=== PATIENT | female | born 1985 | race Caucasian/White ===

== ENCOUNTER 2018-01-17 14:11 | Inpatient (IN) | payer SELFPAY ==
--- NOTE | 2018-01-17 14:30 | ER Document Report ---
ED Seizure - General Chief Complaint: ETOH Abuse Stated Complaint: WITHDRAWL Time Seen by Provider: 01/17/18 14:29 Mode of Arrival: Medic Information source: Patient, Relative, Emergency Med Personnel - HPI Patient complains to provider of: First seizure Number of episodes: 2 Time of onset: 1330 Duration: 1 MIN Quality of pain: No pain Continued on arrival to ED: No Can details of seizure be obtained/verified: Yes Episode witnessed (by whom): Yes - SIGN. OTHER Preceding symptoms/context: Recent alcohol intake, Other - LONG-TERM ALCOHOLISM History of: denies: Brain tumor or mets, CVA, Hydrocephalus, Migraines, TBI, V/ P shunt, Other Character of seizure: Complete loss/conscious, Generalized shaking. No: Incontinent stool, Incontinent bladder Post-ictal symptoms: None Injuries: None - Related Data Allergies/Adverse Reactions: No Known Allergies Allergy (Verified 07/04/15 11:54) Past Medical History - General Information source: Patient - Social History Smoking Status: Former Smoker Cigarette use (# per day): No Chew tobacco use (# tins/day): No Frequency of alcohol use: Heavy Drug Abuse: None Lives with: Spouse/Significant other Family History: Reviewed & Not Pertinent Patient has suicidal ideation: No Patient has homicidal ideation: No - Past Medical History Cardiac Medical History: Reports: None Pulmonary Medical History: Reports: None EENT Medical History: Reports: None Neurological Medical History: Reports: None Endocrine Medical History: Reports: None Renal/ Medical History: Reports: None. Denies: Hx Peritoneal Dialysis Malignancy Medical History: Reports: None GI Medical History: Reports: None. Denies: Hx Cirrhosis, Hx Hepatitis, Hx Ulcer Musculoskeltal Medical History: Reports None Skin Medical History: Reports None Psychiatric Medical History: Reports: None Past Surgical History: Reports: Hx Appendectomy - Immunizations Hx Diphtheria, Pertussis, Tetanus Vaccination: Yes Review of Systems - Review of Systems Constitutional: Weakness EENT: No symptoms reported Cardiovascular: No symptoms reported Respiratory: No symptoms reported Gastrointestinal: No symptoms reported Genitourinary: No symptoms reported Female Genitourinary: No symptoms reported Musculoskeletal: No symptoms reported Skin: No symptoms reported Neurological/Psychological: See HPI Physical Exam - Vital signs Vitals: Temp Pulse Resp BP Pulse Ox 98.5 F 119 H 20 136/102 H 96 01/17/18 14:24 01/17/18 14:24 01/17/18 14:24 01/17/18 14:24 01/17/18 14:24 Interpretation: Hypertensive, Tachycardic. No: Hypoxic, Tachypneic, Febrile - General General appearance: Appears well, Alert In distress: None - HEENT Head: Normocephalic Eyes: Normal Conjunctiva: Normal Ears: Normal Nasal: Normal Mouth/Lips: Normal Mucous membranes: Normal - Respiratory Respiratory status: No respiratory distress Breath sounds: Normal - Cardiovascular Rhythm: Regular Heart sounds: Normal auscultation Murmur: No - Abdominal Inspection: Normal Distension: No distension Bowel sounds: Hypoactive Tenderness: Nontender - Extremities General upper extremity: Normal inspection General lower extremity: Normal inspection - Neurological Neuro grossly intact: Yes Cognition: Normal Orientation: AAOx4 - Psychological Associated symptoms: Normal affect, Normal mood - Skin Skin Temperature: Warm Skin Moisture: Dry Skin Color: Normal Skin Turgor: Elastic Skin irregularity: other - CONTUSIONS, MULTIPLE, VARIOUS AGES Location of irregularity: Generalized - MORE ON EXTREMITIES, SOME ALSO ON HEAD & NECK Course - Vital Signs Vital signs: Temp Pulse Resp BP Pulse Ox 98.5 F 119 H 24 H 132/93 H 98 01/17/18 14:24 01/17/18 14:24 01/17/18 19:02 01/17/18 19:02 01/17/18 19:02 - Laboratory Result Diagrams: 01/17/18 13:45 01/17/18 13:45 Laboratory results interpreted by me: 01/17/18 01/17/18 13:45 13:45 WBC 11.9 H RDW 17.0 H Seg Neuts % (Manual) 96 H Lymphocytes % (Manual) 1 L Abs Neuts (Manual) 11.4 H Abs Lymphs (Manual) 0.1 L Sodium 147.3 H Potassium 3.5 L Anion Gap 25 H Calcium 10.3 H AST 109 H Creatine Kinase 5307 H Albumin 5.1 H Salicylates < 1.0 L Acetaminophen < 10 L - EKG Interpretation by Ma EKG shows normal: Sinus rhythm, Newell, QRS Complexes, ST-T Waves. abnormal: Intervals - BORDERLINE LONG QT Rate: Tachycardia - Consults DR. SANDHU Time consulted: 19:32 Consulted provider: will come to ER Discharge - Discharge Clinical Impression: Alcohol withdrawal delirium, Multiple contusions, Alcohol abuse, daily use, Elevated creatine kinase Condition: Good Disposition: ADMITTED OBSERVATION Admitting Provider: Hospitalist Unit Admitted: Telemetry
[2018-01-17] MEDS ORDERED: LORAZEPAM INJ 2 MG/1 ML VIAL IV ONE ×2 (14:37→20:12)
[2018-01-17] MEDS ORDERED: NORMAL SALINE 1000 ML 2,000 ML IV PRN (14:37)
[2018-01-17] MEDS ORDERED: DIAZEPAM 5 MG TABLET PO ONE (14:40)
[2018-01-17 15:09] LABS: HEMATOCRIT 42.9 % (36.0-47.0); HEMOGLOBIN 14.2 g/dL (12.0-15.5); MEAN CORPUSCULAR HEMOGLOBIN 28.8 pg (27.0-33.4); MEAN CORPUSCULAR HGB CONC 33.2 g/dL (32.0-36.0); MEAN CORPUSCULAR VOLUME 87 fl (80-97); PLATELET COUNT 206 10^3/uL (150-450); RED BLOOD COUNT 4.95 10^6/uL (3.72-5.28); WHITE BLOOD COUNT 11.9 10^3/uL (4.0-10.5)
[2018-01-17 15:23] LABS: ALANINE AMINOTRANSFERASE 48 U/L (9-52); ALBUMIN 5.1 g/dL (3.5-5.0); ALCOHOL 73 mg/dL (NONE DETECTED); ALKALINE PHOSPHATASE 62 U/L (38-126); ASPARTATE AMINO TRANSFERASE 109 U/L (14-36); BILIRUBIN,DIRECT 0.4 mg/dL (0.0-0.4); BILIRUBIN,TOTAL 0.4 mg/dL (0.2-1.3); BLOOD UREA NITROGEN 8 mg/dL (7-20); CALCIUM 10.3 mg/dL (8.4-10.2); CARBON DIOXIDE 22 mmol/L (22-30); CHLORIDE 100 mmol/L (98-107); GLUCOSE 99 mg/dL (75-110); LIPASE 23.8 U/L (23-300); POTASSIUM 3.5 mmol/L (3.6-5.0); TOTAL PROTEIN 8.2 g/dL (6.3-8.2)
[2018-01-17 15:24] LABS: ACETAMINOPHEN < 10 ug/mL (10-30); SALICYLATE < 1.0 mg/dL (2.0-20.0)
[2018-01-17 15:28] LABS: INTERNATIONAL RATION (INR) 0.94; SODIUM 147.3 mmol/L (137-145)
[2018-01-17 15:32] LABS: ANION GAP 25 (5-19)
[2018-01-17 15:36] LABS: ABSOLUTE LYMPHOCYTES# (MANUAL) 0.1 10^3/uL (0.5-4.7); ABSOLUTE MONOCYTES # (MANUAL) 0.4 10^3/uL (0.1-1.4); ABSOLUTE NEUTROPHILS# (MANUAL) 11.4 10^3/uL (1.7-8.2); BASOPHILS % (MANUAL) 0 % (0-2); EOSINOPHILS % (MANUAL) 0 % (0-6); LYMPHOCYTES % (MANUAL) 1 % (13-45); MONOCYTES % (MANUAL) 3 % (3-13); SEGMENTED NEUTROPHILS % (MAN) 96 % (42-78); TOTAL CELLS COUNTED 100
[2018-01-17 15:37] LABS: ANISOCYTOSIS 1+; PLATELET COMMENT ADEQUATE
[2018-01-17 15:44] LABS: CREATINE KINASE 5307 U/L (30-135)
--- NOTE | 2018-01-17 16:45 | EKG REPORT ---
SEVERITY:- BORDERLINE ECG - SINUS TACHYCARDIA BORDERLINE PROLONGED QT INTERVAL : Confirmed by: Chi Geller MD 17-Jan-2018 16:44:28
[2018-01-17] MEDS ORDERED: RINGERS SOLUTION,LACTATED 2,000 ML IV PRN (17:15)
[2018-01-17] MEDS ORDERED: LORAZEPAM INJ 2 MG/1 ML VIAL IV PRN (18:03)
[2018-01-17] MEDS ORDERED: MAG HYDROX/AL HYDROX/SIMETH SUSP 30 ML UDCUP PO PRN (19:33)
[2018-01-17] MEDS ORDERED: MAGNESIUM HYDROXIDE SUSP 30 ML UDCUP PO PRN (19:33)
[2018-01-17] MEDS ORDERED: IPRATROPIUM/ALBUTEROL 0.5-2.5 MG/3 ML AMPUL NEB PRN (19:33)
[2018-01-17] MEDS ORDERED: LORAZEPAM INJ 2 MG/1 ML VIAL IV SCH (20:00)
[2018-01-17] MEDS: LORAZEPAM INJ 2 MG/1 ML VIAL IV PRN (20:06)
[2018-01-17 20:14] LABS: PHOSPHORUS 4.7 mg/dL (2.5-4.5)
[2018-01-17] MEDS ORDERED: OLANZAPINE INJ/PF 10 MG SDV IM ONE (20:17)
[2018-01-17 20:18] LABS: AMORPHOUS SEDIMENT,URINE TRACE /HPF; APPEARANCE,URINE CLOUDY; BILIRUBIN,URINE NEGATIVE (NEGATIVE); COLOR,URINE YELLOW; GLUCOSE, URINE NEGATIVE (NEGATIVE); KETONES,URINE NEGATIVE (NEGATIVE); LEUKOCYTE ESTERASE,URINE LARGE (NEGATIVE); NITRITE,URINE NEGATIVE (NEGATIVE); PROTEIN,URINE 30 mg/dL (NEGATIVE); URINE SPECIFIC GRAVITY 1.009; UROBILINOGEN,URINE NEGATIVE mg/dL (<2.0)
[2018-01-17] MEDS ORDERED: THIAMINE HCL INJ 200 MG/2 ML VIAL ONE (20:23)
[2018-01-17 20:24] LABS: URINE AMPHETAMINES SCREEN NEGATIVE; URINE BARBITURATES SCREEN NEGATIVE; URINE BENZODIAZEPINES SCREEN NEGATIVE; URINE COCAINE SCREEN NEGATIVE; URINE MARIJUANA (THC) SCREEN NEGATIVE; URINE METHADONE SCREEN NEGATIVE; URINE PHENCYCLIDINE SCREEN NEGATIVE
[2018-01-17] MEDS ORDERED: THIAMINE HCL 100 MG, FOLIC ACID 1 MG in NORMAL SALINE 250 ML IV ONE (20:30)
[2018-01-17] MEDS: POTASSI CL 20 MEQ/D5-1/2NS 1L 1,000 ML IV SCH (20:33)
[2018-01-17] MEDS: IPRATROPIUM/ALBUTEROL 0.5-2.5 MG/3 ML AMPUL NEB SCH (20:56)
[2018-01-17] MEDS: MAGNESIUM SULFATE/D5W 2 GM/200 ML RTUPB IV SCH (21:30)
[2018-01-17] MEDS ORDERED: MORPHINE SULFATE 10 MG/ML INJ ONE (21:58)
[2018-01-17] MEDS ORDERED: MORPHINE SULFATE 10 MG/ML INJ IV ONE (22:01)
[2018-01-18] MEDS: HEPARIN SOD (PORCINE) 5,000 UNIT/ML 1 ML SYRINGE SUBCUT SCH ×4 (02:07→21:28)
[2018-01-18] MEDS: LORAZEPAM INJ 2 MG/1 ML VIAL IV SCH ×5 (02:07→17:16)
[2018-01-18] MEDS: POTASSI CL 20 MEQ/D5-1/2NS 1L 1,000 ML IV SCH (02:10)
[2018-01-18] MEDS: LORAZEPAM INJ 2 MG/1 ML VIAL IV PRN ×5 (04:07→14:40)
[2018-01-18 04:21] LABS: ABSOLUTE LYMPHOCYTES (AUTO) 1.1 10^3/uL (0.5-4.7); ABSOLUTE MONOCYTES (AUTO) 0.6 10^3/uL (0.1-1.4); ABSOLUTE NEUT (AUTO) 5.5 10^3/uL (1.7-8.2); BASOPHILS % (AUTO) 0.3 % (0-2); EOSINOPHILS % (AUTO) 0.5 % (0-6); HEMATOCRIT 31.6 % (36.0-47.0); LYMPHOCYTES % (AUTO) 15.3 % (13-45); MEAN CORPUSCULAR HGB CONC 33.7 g/dL (32.0-36.0); MEAN CORPUSCULAR VOLUME 86 fl (80-97); MONOCYTES % (AUTO) 8.3 % (3-13); PLATELET COUNT 134 10^3/uL (150-450); RED BLOOD COUNT 3.67 10^6/uL (3.72-5.28); RED CELL DISTRIBUTION WIDTH 16.7 % (11.5-14.0); SEGMENTED NEUTROPHILS % (AUTO) 75.6 % (42-78); TOTAL CELLS COUNTED % (AUTO) 100 %; WHITE BLOOD COUNT 7.3 10^3/uL (4.0-10.5)
[2018-01-18 04:25] LABS: HEMOGLOBIN 10.6 g/dL (12.0-15.5)
[2018-01-18 04:44] LABS: ALANINE AMINOTRANSFERASE 40 U/L (9-52); ALBUMIN 3.5 g/dL (3.5-5.0); ALKALINE PHOSPHATASE 38 U/L (38-126); ANION GAP 7 (5-19); ASPARTATE AMINO TRANSFERASE 137 U/L (14-36); BILIRUBIN,DIRECT 0.1 mg/dL (0.0-0.4); BILIRUBIN,TOTAL 0.6 mg/dL (0.2-1.3); BLOOD UREA NITROGEN 4 mg/dL (7-20); CALCIUM 8.4 mg/dL (8.4-10.2); CARBON DIOXIDE 28 mmol/L (22-30); CHLORIDE 106 mmol/L (98-107); GLUCOSE 119 mg/dL (75-110); POTASSIUM 3.4 mmol/L (3.6-5.0); SODIUM 141.2 mmol/L (137-145)
[2018-01-18] MEDS: LANSOPRAZOLE 30 MG TAB.RAP.DR PO SCH ×2 (05:15→17:15)
[2018-01-18 05:31] LABS: CREATINE KINASE 7741 U/L (30-135)
--- NOTE | 2018-01-18 05:39 | PDOC H&P ---
History of Present Illness Admission Date/PCP: 01/17/18 19:44 Patient complains of: Seizure-like activity History of Present Illness: ELADIO HAM is a 32 year old female with an unclear past medical history with exception to alcohol dependence. Patient presents with altered mental status and at least one seizure prompting evaluation in the emergency room. The patient is intoxicated appearing, agitated, manic with tremor, flight of ideas, widespread bruising of various ages and dilated pupils. Patient denies physical abuse but admits alcohol dependence and recurrent falls. Patient attempts to elope several times, involuntary commitment papers have been submitted and she is referred to the hospitalist for admission. She requires 6 mg of Ativan, 10 mg of Zyprexa and 10 mg of morphine resulting in calm affect. Past Medical History Cardiac Medical History: Reports: None Pulmonary Medical History: Reports: None EENT Medical History: Reports: None Neurological Medical History: Reports: None Endocrine Medical History: Reports: None Renal/ Medical History: Reports: None Malignancy Medical History: Reports: None GI Medical History: Reports: None Denies: Cirrhosis, Hepatitis Musculoskeltal Medical History: Reports: None Skin Medical History: Reports: None Psychiatric Medical History: Reports: Alcohol Dependency, Depression Past Surgical History Past Surgical History: Reports: Appendectomy Social History Information Source: Patient, Emergency Med Personnel Lives with: Spouse/Significant other Smoking Status: Current Every Day Smoker Frequency of Alcohol Use: Heavy Hx Recreational Drug Use: No Drugs: None Hx Prescription Drug Abuse: No - Advance Directive Resuscitation Status: Full Code Family History Family History: Hypertension Parental Family History Reviewed: Yes Children Family History Reviewed: Yes Sibling(s) Family History Reviewed.: Yes Medication/Allergy Home Medications: Ferrous Sulfate [Iron Supplement] 325 mg PO DAILY 07/01/15 Vits96/Iron Fum/Folic [ Tablet] 1 tab PO DAILY 07/01/15 Ibuprofen [Motrin 800 mg Tablet] 800 mg PO Q8 #60 tablet 07/07/15 Allergies/Adverse Reactions: No Known Allergies Allergy (Verified 07/04/15 11:54) Review of Systems ROS unobtainable: Due to mental status Physical Exam Vital Signs: Temp Pulse Resp BP Pulse Ox 98.2 F 107 H 14 112/84 98 01/18/18 03:22 01/17/18 22:52 01/18/18 02:00 01/18/18 01:51 01/18/18 02:00 Intake & Output 01/16/18 01/17/18 01/18/18 11:59 11:59 11:59 Output Total 1575 Balance -1575 Weight 67.8 kg General appearance: PRESENT: disheveled, severe distress. ABSENT: cooperative, hard of hearing Head exam: PRESENT: other - Left-sided periorbital edema with ecchymosis, many scattered bruises throughout Eye exam: PRESENT: conjunctiva pink, EOMI, PERRLA - 6-7 mm and symmetric. ABSENT: scleral icterus Ear exam: PRESENT: normal external ear exam Mouth exam: PRESENT: moist, tongue midline Neck exam: ABSENT: carotid bruit, JVD, lymphadenopathy, thyromegaly Respiratory exam: PRESENT: clear to auscultation jan, tachypnea. ABSENT: rales , rhonchi, wheezes Cardiovascular exam: PRESENT: RRR, tachycardia. ABSENT: systolic murmur Pulses: PRESENT: normal dorsalis pedis pul Vascular exam: PRESENT: normal capillary refill GI/Abdominal exam: PRESENT: normal bowel sounds, soft. ABSENT: distended, guarding, mass, organolmegaly, rebound, tenderness Rectal exam: PRESENT: deferred Extremities exam: PRESENT: full ROM, other - Widespread bruising of various stages of healing. ABSENT: calf tenderness, clubbing, pedal edema Neurological exam: PRESENT: alert, altered, awake, oriented to person, oriented to place, CN II-XII grossly intact. ABSENT: oriented to time, oriented to situation Psychiatric exam: PRESENT: agitated, manic, unusual affect Skin exam: PRESENT: abrasion, erythema. ABSENT: cyanosis, dry, petechiae, urticaria, vesicles Results Laboratory Results: 01/18/18 03:50 01/17/18 01/18/18 19:46 03:50 WBC 7.3 RBC 3.67 L Hgb 10.6 L D Hct 31.6 L MCV 86 MCH 29.0 MCHC 33.7 RDW 16.7 H Plt Count 134 L Seg Neutrophils % 75.6 Lymphocytes % 15.3 Monocytes % 8.3 Eosinophils % 0.5 Basophils % 0.3 Absolute Neutrophils 5.5 Absolute Lymphocytes 1.1 Absolute Monocytes 0.6 Absolute Eosinophils 0.0 Absolute Basophils 0.0 Urine Color YELLOW Urine Appearance CLOUDY Urine pH 5.0 Ur Specific [place] 1.009 Urine Protein 30 H Urine Glucose (UA) NEGATIVE Urine Ketones NEGATIVE Urine Blood MODERATE H Urine Nitrite NEGATIVE Ur Leukocyte Esterase LARGE H Urine WBC (Auto) 33 Urine RBC (Auto) 2 Assessment & Plan - Diagnosis (1) Intoxication by drug Is this a current diagnosis for this admission?: Yes Plan: Unclear agent with heath, supportive measures, psychiatry consult, involuntary commitment (2) Alcohol abuse, daily use Is this a current diagnosis for this admission?: Yes Plan: Thiamine folate and Ativan and discharge planning (3) Alcohol withdrawal delirium Is this a current diagnosis for this admission?: Yes Plan: See #2 with seizure precaution (4) Elevated creatine kinase Is this a current diagnosis for this admission?: Yes Plan: Secondary to multiple presumed falls denying abuse reevaluate when mental status improves, IV fluid challenge reevaluate chemistry - Time Time Spent: 50 to 70 Minutes - Inpatient Certification Medical Necessity: Need Close Monitoring Due to Risk of Patient Decompensation
[2018-01-18] MEDS: NORMAL SALINE 1000 ML 1,000 ML IV PRN ×3 (06:08→08:29)
[2018-01-18] MEDS: IPRATROPIUM/ALBUTEROL 0.5-2.5 MG/3 ML AMPUL NEB SCH ×2 (09:10→20:49)
[2018-01-18] MEDS ORDERED: SUCCINYLCHOLINE CHLORIDE INJ 200 MG/10 ML VIAL ONE (09:55)
[2018-01-18] MEDS ORDERED: NITROFURANTOIN 5 MG/ML SUSP 60 ML PO SCH (10:45)
[2018-01-18] MEDS: THIAMINE HCL 100 MG, FOLIC ACID 1 MG in NORMAL SALINE 250 ML IV SCH (10:53)
[2018-01-18] MEDS: DOCUSATE SODIUM 100 MG CAPSULE PO SCH ×2 (10:53→17:15)
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
[2018-01-18] MEDS ORDERED: POTASSIUM CHLORIDE 20 MEQ/15 ML UDCUP PO ONE (11:15)
[2018-01-18] MEDS ORDERED: NITROFURANTOIN MONOHYD/M-CRYST 100 MG CAPSULE PO ONE (11:45)
[2018-01-18] MEDS: POTASSI CL 20 MEQ/D5-1/2NS 1L 1,000 ML IV PRN (13:31)
[2018-01-18] MEDS ORDERED: PHARMACY COMMUNICATION ORDER MC NR (14:30)
[2018-01-18] MEDS ORDERED: MIDAZOLAM 2 MG/2 ML INJ ONE (14:46)
[2018-01-18] MEDS: PROPOFOL 100 ML IV PRN ×4 (15:10→22:40)
[2018-01-18] MEDS: LORAZEPAM 24 MG/240 ML BAG IV PRN ×2 (15:21→20:42)
--- NOTE | 2018-01-18 15:41 | RADIOLOGY REPORT (SQ) ---
EXAM DESCRIPTION: CHEST SINGLE VIEW COMPLETED DATE/TIME: 01/18/2018 3:17 pm REASON FOR STUDY: ET TUBE PLACEMENT COMPARISON: 03/11/2015 two-view chest EXAM PARAMETERS: NUMBER OF VIEWS: One view. TECHNIQUE: Single frontal radiographic view of the chest acquired. RADIATION DOSE: NA LIMITATIONS: None. FINDINGS: LUNGS AND PLEURA: Right lung grossly clear. Minimal airspace disease left lower lobe, cou ld represent early or developing pneumonia. Aspiration should be considered. No pleural effusion. No pneumothorax. MEDIASTINUM AND HILAR STRUCTURES: No masses. Contour normal. HEART AND VASCULAR STRUCTURES: Heart normal in size. Normal vasculature. BONES: No acute findings. HARDWARE: Endotracheal tube tip midtrachea. Nasogastric tube tip and side port in the stomach OTHER: Report called at [facility] in the ICU IMPRESSION: Endotracheal and nasogastric tubes in good positioning. Early or developing left lower lobe air space disease, aspiration pneumonia should be considered TECHNICAL DOCUMENTATION: JOB ID: [id number] [employer]- All Rights Reserved Reading location - IP/workstation name: [email or web address]
--- NOTE | 2018-01-18 15:43 | RADIOLOGY REPORT (SQ) ---
EXAM DESCRIPTION: KUB/ABDOMEN (SINGLE VIEW) COMPLETED DATE/TIME: 01/18/2018 3:17 pm REASON FOR STUDY: NGT PLACEMENT COMPARISON: AP chest same date NUMBER OF VIEWS: One view. TECHNIQUE: Supine radiographic image of the abdomen acquired. LIMITATIONS: None. FINDINGS: BOWEL GAS PATTERN: Nasogastric tube tip and side port in the stomach. Nonobstructive kamla l gas pattern. CALCIFICATIONS: No suspicious calcifications. SOFT TISSUES: No gross mass or suggestion of organomegaly. HARDWARE: Nichole catheter in the bladder. Nasogastric tube tip and side port in the stomach. BONES: No acute fracture. No worrisome bone lesions. OTHER: No other significant finding. IMPRESSION: Nonobstructive bowel gas pattern. Nasogastric tube and Nichole catheter in good positioni ng TECHNICAL DOCUMENTATION: JOB ID: [id number] [employer]- All Rights Reserved Reading location - IP/workstation name: [email or web address]
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
[2018-01-18] MEDS: NITROFURANTOIN MONOHYD/M-CRYST 100 MG CAPSULE PO SCH (17:14)
[2018-01-18 17:45] LABS: ARTERIAL BLOOD BASE EXCESS -1.4 mmol/L; ARTERIAL BLOOD H2CO3 0.86 mmol/L (1.05-1.35); ARTERIAL BLOOD HCO3 21.1 mmol/L (20-26); ARTERIAL BLOOD O2 SATURATION 99.2 % (94-98); ARTERIAL BLOOD PCO2 28.5 mmHg (35-45); ARTERIAL BLOOD PH 7.49 (7.35-7.45); ARTERIAL BLOOD PO2 153.8 mmHg (80-100)
[2018-01-18 17:46] LABS: ARTERIAL BLOOD FIO2 40%
[2018-01-18 20:18] LABS: ARTERIAL BLOOD BASE EXCESS -1.5 mmol/L; ARTERIAL BLOOD H2CO3 1.07 mmol/L (1.05-1.35); ARTERIAL BLOOD HCO3 22.5 mmol/L (20-26); ARTERIAL BLOOD O2 SATURATION 98.3 % (94-98); ARTERIAL BLOOD PCO2 35.5 mmHg (35-45); ARTERIAL BLOOD PH 7.42 (7.35-7.45); ARTERIAL BLOOD PO2 113.6 mmHg (80-100); ARTERIAL BLOOD TOTAL CO2 23.6 mmol/L (21-25)
[2018-01-18 20:19] LABS: ARTERIAL BLOOD FIO2 30%
[2018-01-18] MEDS: ACETAMINOPHEN 325 MG TABLET PO PRN (21:28)
[2018-01-19] MEDS: LORAZEPAM INJ 2 MG/1 ML VIAL IV SCH ×4 (00:06→17:06)
[2018-01-19] MEDS: POTASSI CL 20 MEQ/D5-1/2NS 1L 1,000 ML IV PRN ×2 (00:08→10:16)
[2018-01-19] MEDS: LORAZEPAM 24 MG/240 ML BAG IV PRN ×5 (01:55→22:33)
[2018-01-19] MEDS: LORAZEPAM INJ 2 MG/1 ML VIAL IV PRN ×2 (01:55→20:55)
[2018-01-19] MEDS: PROPOFOL 100 ML IV PRN ×6 (01:55→20:39)
[2018-01-19 04:07] LABS: HEMATOCRIT 34.1 % (36.0-47.0); HEMOGLOBIN 11.5 g/dL (12.0-15.5); MEAN CORPUSCULAR HEMOGLOBIN 29.4 pg (27.0-33.4); MEAN CORPUSCULAR HGB CONC 33.8 g/dL (32.0-36.0); MEAN CORPUSCULAR VOLUME 87 fl (80-97); PLATELET COUNT 117 10^3/uL (150-450); RED BLOOD COUNT 3.92 10^6/uL (3.72-5.28); RED CELL DISTRIBUTION WIDTH 16.5 % (11.5-14.0)
[2018-01-19 04:11] LABS: INTERNATIONAL RATION (INR) 0.96; PROTHROMBIN TIME 13.3 SEC (11.4-15.4)
[2018-01-19 04:39] LABS: ALANINE AMINOTRANSFERASE 45 U/L (9-52); ALBUMIN 3.3 g/dL (3.5-5.0); ALKALINE PHOSPHATASE 49 U/L (38-126); ANION GAP 11 (5-19); ASPARTATE AMINO TRANSFERASE 107 U/L (14-36); BILIRUBIN,DIRECT 0.4 mg/dL (0.0-0.4); BILIRUBIN,TOTAL 0.5 mg/dL (0.2-1.3); BLOOD UREA NITROGEN 2 mg/dL (7-20); CALCIUM 8.7 mg/dL (8.4-10.2); CARBON DIOXIDE 23 mmol/L (22-30); CHLORIDE 111 mmol/L (98-107); GLUCOSE 110 mg/dL (75-110); IRON 28.4 ug/dL (37-170); PHOSPHORUS 2.6 mg/dL (2.5-4.5); POTASSIUM 3.5 mmol/L (3.6-5.0); SODIUM 145.2 mmol/L (137-145); TOTAL PROTEIN 6.1 g/dL (6.3-8.2); TRIGLYCERIDES 120 mg/dL (<150)
[2018-01-19 05:05] LABS: CREATINE KINASE 4632 U/L (30-135)
[2018-01-19] MEDS: ACETAMINOPHEN 325 MG TABLET PO PRN ×2 (05:13→10:55)
[2018-01-19] MEDS: HEPARIN SOD (PORCINE) 5,000 UNIT/ML 1 ML SYRINGE SUBCUT SCH (05:13)
[2018-01-19] MEDS: LANSOPRAZOLE 30 MG TAB.RAP.DR PO SCH (05:13)
[2018-01-19 05:54] LABS: ARTERIAL BLOOD BASE EXCESS -1.7 mmol/L; ARTERIAL BLOOD H2CO3 1.03 mmol/L (1.05-1.35); ARTERIAL BLOOD HCO3 22.1 mmol/L (20-26); ARTERIAL BLOOD O2 SATURATION 92.9 % (94-98); ARTERIAL BLOOD PCO2 34.2 mmHg (35-45); ARTERIAL BLOOD PH 7.43 (7.35-7.45); ARTERIAL BLOOD PO2 63.1 mmHg (80-100); ARTERIAL BLOOD TOTAL CO2 23.1 mmol/L (21-25)
[2018-01-19 05:55] LABS: ARTERIAL BLOOD FIO2 30%
[2018-01-19] MEDS: IPRATROPIUM/ALBUTEROL 0.5-2.5 MG/3 ML AMPUL NEB SCH ×2 (08:04→20:02)
--- NOTE | 2018-01-19 08:44 | RADIOLOGY REPORT (SQ) ---
EXAM DESCRIPTION: CHEST SINGLE VIEW COMPLETED DATE/TIME: 01/19/2018 8:30 am REASON FOR STUDY: pt intubated COMPARISON: Chest films 03/11/2015, 01/18/2018 EXAM PARAMETERS: NUMBER OF VIEWS: One view. TECHNIQUE: Single frontal radiographic view of the chest acquired. RADIATION DOSE: NA LIMITATIONS: None. FINDINGS: Endotracheal tube tip 5 cm above the yoselin. Nasogastric tube tip and side port in the stomach. LUNGS AND PLEURA: No opacities, masses or pneumothorax. No pleural effusion. MEDIASTINUM AND HILAR STRUCTURES: No masses. Contour normal. HEART AND VASCULAR STRUCTURES: Heart normal in size. Normal vasculature. BONES: No acute findings. HARDWARE: None in the chest. OTHER: No other significant finding. IMPRESSION: NO ACUTE RADIOGRAPHIC FINDING IN THE CHEST. TECHNICAL DOCUMENTATION: JOB ID: [id number] [employer]- All Rights Reserved Reading location - IP/workstation name: [email or web address]
[2018-01-19] MEDS: NITROFURANTOIN MONOHYD/M-CRYST 100 MG CAPSULE PO SCH (08:51)
[2018-01-19] MEDS: THIAMINE HCL 100 MG, FOLIC ACID 1 MG in NORMAL SALINE 250 ML IV SCH (10:18)
[2018-01-19] MEDS: DOCUSATE SODIUM 100 MG CAPSULE PO SCH (10:19)
[2018-01-19] MEDS ORDERED: CHLOROTHIAZIDE SODIUM INJ/PF 500 MG SDV IV ONE (12:14)
[2018-01-19] MEDS: METOPROLOL TARTRATE PF/INJ 5 MG/5 ML SDV IV PRN (12:31)
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
[2018-01-19] MEDS: ACETAMINOPHEN 650 MG SUPP.RECT PR PRN ×2 (12:39→16:41)
[2018-01-19] MEDS ORDERED: IRON SUCROSE COMPLEX INJ/PF 100 MG/5 ML SDV IV ONE (13:00)
[2018-01-19] MEDS ORDERED: LEVOFLOXACIN 750 MG/D5W RTU 750 MG/150 ML RTUPB IV ONE (13:00)
[2018-01-19] MEDS ORDERED: VANCOMYCIN HCL 0 MG in DEXTROSE 5%-WATER 250 ML IV NR (16:15)
[2018-01-19] MEDS: IBUPROFEN 400 MG TABLET NG PRN (16:40)
[2018-01-19] MEDS: METOPROLOL TARTRATE PF/INJ 5 MG/5 ML SDV IV SCH (17:05)
[2018-01-19] MEDS: VANCOMYCIN HCL 750 MG in DEXTROSE 5%-WATER 250 ML IV SCH (17:48)
[2018-01-20] MEDS: METOPROLOL TARTRATE PF/INJ 5 MG/5 ML SDV IV SCH ×5 (00:09→23:40)
[2018-01-20] MEDS: LORAZEPAM INJ 2 MG/1 ML VIAL IV SCH ×5 (00:11→23:41)
[2018-01-20] MEDS: PROPOFOL 100 ML IV PRN ×7 (00:11→22:35)
[2018-01-20] MEDS: POTASSI CL 20 MEQ/D5-1/2NS 1L 1,000 ML IV PRN ×2 (00:14→16:50)
[2018-01-20] MEDS: ACETAMINOPHEN 650 MG SUPP.RECT PR PRN (02:12)
[2018-01-20] MEDS: VANCOMYCIN HCL 750 MG in DEXTROSE 5%-WATER 250 ML IV SCH ×3 (02:12→17:50)
[2018-01-20] MEDS: LORAZEPAM 24 MG/240 ML BAG IV PRN ×4 (03:11→18:56)
[2018-01-20] MEDS: IBUPROFEN 400 MG TABLET NG PRN ×3 (03:16→20:33)
[2018-01-20 04:19] LABS: ABSOLUTE EOSINOPHILS # (AUTO) 0.2 10^3/uL (0.0-0.6); ABSOLUTE LYMPHOCYTES (AUTO) 0.4 10^3/uL (0.5-4.7); ABSOLUTE MONOCYTES (AUTO) 0.5 10^3/uL (0.1-1.4); ABSOLUTE NEUT (AUTO) 6.1 10^3/uL (1.7-8.2); BASOPHILS % (AUTO) 0.3 % (0-2); EOSINOPHILS % (AUTO) 2.2 % (0-6); HEMATOCRIT 36.2 % (36.0-47.0); LYMPHOCYTES % (AUTO) 5.6 % (13-45); MEAN CORPUSCULAR HEMOGLOBIN 29.1 pg (27.0-33.4); MEAN CORPUSCULAR HGB CONC 33.2 g/dL (32.0-36.0); MEAN CORPUSCULAR VOLUME 88 fl (80-97); MONOCYTES % (AUTO) 7.2 % (3-13); PLATELET COUNT 113 10^3/uL (150-450); RED BLOOD COUNT 4.12 10^6/uL (3.72-5.28); SEGMENTED NEUTROPHILS % (AUTO) 84.7 % (42-78); TOTAL CELLS COUNTED % (AUTO) 100 %; WHITE BLOOD COUNT 7.2 10^3/uL (4.0-10.5)
[2018-01-20 04:46] LABS: ALANINE AMINOTRANSFERASE 42 U/L (9-52); ALBUMIN 3.6 g/dL (3.5-5.0); ALKALINE PHOSPHATASE 53 U/L (38-126); ANION GAP 11 (5-19); ASPARTATE AMINO TRANSFERASE 71 U/L (14-36); BILIRUBIN,DIRECT 0.5 mg/dL (0.0-0.4); BILIRUBIN,TOTAL 0.6 mg/dL (0.2-1.3); BLOOD UREA NITROGEN 4 mg/dL (7-20); CALCIUM 8.8 mg/dL (8.4-10.2); CARBON DIOXIDE 22 mmol/L (22-30); CHLORIDE 108 mmol/L (98-107); CREATINE KINASE 999 U/L (30-135); GLUCOSE 143 mg/dL (75-110); PHOSPHORUS 3.5 mg/dL (2.5-4.5); POTASSIUM 3.1 mmol/L (3.6-5.0); SODIUM 141.2 mmol/L (137-145); TOTAL PROTEIN 6.6 g/dL (6.3-8.2)
[2018-01-20 05:42] LABS: ARTERIAL BLOOD BASE EXCESS -3.3 mmol/L; ARTERIAL BLOOD FIO2 30%; ARTERIAL BLOOD H2CO3 0.89 mmol/L (1.05-1.35); ARTERIAL BLOOD HCO3 19.8 mmol/L (20-26); ARTERIAL BLOOD O2 SATURATION 97.8 % (94-98); ARTERIAL BLOOD PCO2 29.6 mmHg (35-45); ARTERIAL BLOOD PH 7.44 (7.35-7.45); ARTERIAL BLOOD PO2 98.6 mmHg (80-100); ARTERIAL BLOOD TOTAL CO2 20.7 mmol/L (21-25)
[2018-01-20] MEDS: IPRATROPIUM/ALBUTEROL 0.5-2.5 MG/3 ML AMPUL NEB SCH ×2 (07:37→20:29)
[2018-01-20] MEDS: METOPROLOL TARTRATE PF/INJ 5 MG/5 ML SDV IV PRN ×2 (08:12→21:12)
[2018-01-20] MEDS: THIAMINE HCL 100 MG, FOLIC ACID 1 MG in NORMAL SALINE 250 ML IV SCH (09:00)
[2018-01-20] MEDS: PANTOPRAZOLE SODIUM 40 MG VIAL IV SCH (09:00)
[2018-01-20] MEDS: IRON SUCROSE COMPLEX INJ/PF 100 MG/5 ML SDV IV SCH (09:01)
[2018-01-20] MEDS: POLYETHYLENE GLYCOL 3350 POWDER 17 GM/1 PACKET PO SCH (09:01)
--- NOTE | 2018-01-20 09:44 | RADIOLOGY REPORT (SQ) ---
EXAM DESCRIPTION: CHEST SINGLE VIEW COMPLETED DATE/TIME: 01/20/2018 9:28 am REASON FOR STUDY: Pt intubated COMPARISON: Chest films 01/19/2018, 03/11/2015 EXAM PARAMETERS: NUMBER OF VIEWS: One view. TECHNIQUE: Single frontal radiographic view of the chest acquired. RADIATION DOSE: NA LIMITATIONS: None. FINDINGS: LUNGS AND PLEURA: Question early or developing right medial lung base airspace disease. L ungs are otherwise clear. No pleural effusion or pneumothorax. MEDIASTINUM AND HILAR STRUCTURES: No masses. Contour normal. HEART AND VASCULAR STRUCTURES: Heart normal in size. Normal vasculature. BONES: No acute findings. HARDWARE: Endotracheal tube tip 5 cm above the yoselin. Nasogastric tube tip and side port in the sto mach. OTHER: No other significant finding. IMPRESSION: Endotracheal and nasogastric tubes in good positioning. Question early or developing right basilar infiltrate TECHNICAL DOCUMENTATION: JOB ID: [id number] [employer]- All Rights Reserved Reading location - IP/workstation name: [email or web address]
[2018-01-20] MEDS: LEVOFLOXACIN 750 MG/D5W RTU 750 MG/150 ML RTUPB IV SCH (10:01)
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
[2018-01-20] MEDS: POTASSI CL 20 MEQ/50 ML RIDER 20 MEQ/50 ML RTUPB IV SCH ×3 (17:50→22:57)
[2018-01-20 19:06] LABS: ARTERIAL BLOOD BASE EXCESS -3.7 mmol/L; ARTERIAL BLOOD H2CO3 0.92 mmol/L (1.05-1.35); ARTERIAL BLOOD HCO3 19.7 mmol/L (20-26); ARTERIAL BLOOD O2 SATURATION 98.4 % (94-98); ARTERIAL BLOOD PCO2 30.7 mmHg (35-45); ARTERIAL BLOOD PH 7.43 (7.35-7.45); ARTERIAL BLOOD PO2 117.4 mmHg (80-100); ARTERIAL BLOOD TOTAL CO2 20.6 mmol/L (21-25)
[2018-01-20 19:09] LABS: ARTERIAL BLOOD FIO2 30%
[2018-01-20] MEDS ORDERED: POTASSI CL 20 MEQ/50 ML RIDER 20 MEQ/50 ML RTUPB IV ONE (20:34)
[2018-01-21] MEDS: LORAZEPAM 24 MG/240 ML BAG IV PRN ×3 (00:15→09:18)
[2018-01-21] MEDS: POTASSI CL 20 MEQ/50 ML RIDER 20 MEQ/50 ML RTUPB IV SCH (00:16)
[2018-01-21] MEDS ORDERED: LORAZEPAM 24 MG/240 ML BAG IV ONE (00:17)
[2018-01-21] MEDS: POTASSI CL 20 MEQ/D5-1/2NS 1L 1,000 ML IV PRN ×2 (01:32→22:40)
[2018-01-21] MEDS: VANCOMYCIN HCL 1,000 MG in DEXTROSE 5%-WATER 250 ML IV SCH ×3 (01:32→18:00)
[2018-01-21] MEDS: PROPOFOL 100 ML IV PRN ×2 (01:48→04:43)
[2018-01-21 04:33] LABS: ABSOLUTE EOSINOPHILS # (AUTO) 0.2 10^3/uL (0.0-0.6); ABSOLUTE LYMPHOCYTES (AUTO) 0.6 10^3/uL (0.5-4.7); ABSOLUTE MONOCYTES (AUTO) 0.8 10^3/uL (0.1-1.4); ABSOLUTE NEUT (AUTO) 4.4 10^3/uL (1.7-8.2); BASOPHILS % (AUTO) 0.6 % (0-2); EOSINOPHILS % (AUTO) 3.3 % (0-6); HEMATOCRIT 31.6 % (36.0-47.0); HEMOGLOBIN 10.5 g/dL (12.0-15.5); MEAN CORPUSCULAR HEMOGLOBIN 29.3 pg (27.0-33.4); MEAN CORPUSCULAR HGB CONC 33.3 g/dL (32.0-36.0); MEAN CORPUSCULAR VOLUME 88 fl (80-97); MONOCYTES % (AUTO) 12.8 % (3-13); PLATELET COUNT 113 10^3/uL (150-450); RED BLOOD COUNT 3.59 10^6/uL (3.72-5.28); RED CELL DISTRIBUTION WIDTH 17.7 % (11.5-14.0); SEGMENTED NEUTROPHILS % (AUTO) 73.3 % (42-78); TOTAL CELLS COUNTED % (AUTO) 100 %
[2018-01-21 04:43] LABS: ANION GAP 12 (5-19); BLOOD UREA NITROGEN 5 mg/dL (7-20); CALCIUM 8.5 mg/dL (8.4-10.2); CARBON DIOXIDE 21 mmol/L (22-30); CHLORIDE 112 mmol/L (98-107); GLUCOSE 110 mg/dL (75-110); POTASSIUM 4.8 mmol/L (3.6-5.0); SODIUM 144.6 mmol/L (137-145)
[2018-01-21] MEDS: LORAZEPAM INJ 2 MG/1 ML VIAL IV SCH (05:06)
[2018-01-21] MEDS: METOPROLOL TARTRATE PF/INJ 5 MG/5 ML SDV IV SCH (05:06)
[2018-01-21 05:08] LABS: ARTERIAL BLOOD BASE EXCESS -3.3 mmol/L; ARTERIAL BLOOD H2CO3 1.04 mmol/L (1.05-1.35); ARTERIAL BLOOD HCO3 20.9 mmol/L (20-26); ARTERIAL BLOOD O2 SATURATION 98.6 % (94-98); ARTERIAL BLOOD PCO2 34.7 mmHg (35-45); ARTERIAL BLOOD PO2 130.1 mmHg (80-100)
[2018-01-21 05:10] LABS: ARTERIAL BLOOD FIO2 30%
--- NOTE | 2018-01-21 06:33 | RADIOLOGY REPORT (SQ) ---
EXAM DESCRIPTION: Single view of the chest CLINICAL HISTORY: Pt intubated COMPARISON: 01/20/2018 FINDINGS: Single frontal view of the chest. The cardiomediastinal silhouette has normal size and contour. Endotracheal tube with tip 4 cm above the yoselin. NG tube with tip and side-port below the diaphragm. Right medial lung base airspace opacity. No pneumothorax or definite pleural effusion No displaced rib fractures identified. Upper abdominal soft tissues are unremarkable. IMPRESSION: 1. Right medial lower lobe airspace opacity compatible with pneumonia. 2. Tubes and lines in appropriate position
[2018-01-21] MEDS: IPRATROPIUM/ALBUTEROL 0.5-2.5 MG/3 ML AMPUL NEB SCH ×2 (07:45→20:32)
[2018-01-21] MEDS ORDERED: MIDAZOLAM 2 MG/2 ML INJ IV ONE (09:00)
[2018-01-21] MEDS: POLYETHYLENE GLYCOL 3350 POWDER 17 GM/1 PACKET PO SCH (09:17)
[2018-01-21] MEDS: PANTOPRAZOLE SODIUM 40 MG VIAL IV SCH (09:17)
[2018-01-21] MEDS: IRON SUCROSE COMPLEX INJ/PF 100 MG/5 ML SDV IV SCH (09:18)
[2018-01-21] MEDS ORDERED: FENTANYL CITRATE INJ/PF 100 MCG/2 ML AMPUL IV PRN (10:28)
[2018-01-21] MEDS: LEVOFLOXACIN 750 MG/D5W RTU 750 MG/150 ML RTUPB IV SCH (10:29)
[2018-01-21] MEDS: THIAMINE HCL 100 MG, FOLIC ACID 1 MG in NORMAL SALINE 250 ML IV SCH (10:29)
[2018-01-21] MEDS ORDERED: ACETAMINOPHEN 325 MG TABLET PO PRN (11:34)
[2018-01-21] MEDS: DEXMEDETOMIDINE 400 MCG/NS 100 ML BOT IV PRN ×2 (13:52→23:05)
[2018-01-21] MEDS: MIDAZOLAM 2 MG/2 ML INJ IV PRN ×5 (16:38→22:41)
--- NOTE | 2018-01-21 16:50 | PDOC PROGRESS REPORT ---
Subjective Progress Note for:: 01/21/18 Reason For Visit: ETOH W/D SEIZURE Patient is still on propofol, Ativan drip, she is deeply sedated, had episode of fever and tachycardic Physical Exam Vital Signs: Temp Pulse Resp BP Pulse Ox 100.8 F H 113 H 19 126/76 H 100 01/21/18 14:00 01/21/18 14:24 01/21/18 15:27 01/21/18 15:27 01/21/18 16:00 Intake & Output 01/20/18 01/21/18 01/22/18 06:59 06:59 06:59 Intake Total 4887 5612 108 Output Total 5500 6803 5160 Balance -613 1137 -6425 Weight 64.8 kg 66.4 kg General appearance: PRESENT: other - Sedated and intubated Respiratory exam: PRESENT: rhonchi - On the right side no wheeze Neurological exam: ABSENT: alert, altered, awake, oriented to time Results Laboratory Results: 01/21/18 04:02 01/21/18 04:02 01/20/18 01/21/18 01/21/18 18:51 04:02 04:02 WBC 6.0 RBC 3.59 L Hgb 10.5 L Hct 31.6 L MCV 88 MCH 29.3 MCHC 33.3 RDW 17.7 H Plt Count 113 L Seg Neutrophils % 73.3 Lymphocytes % 10.0 L Monocytes % 12.8 Eosinophils % 3.3 Basophils % 0.6 Absolute Neutrophils 4.4 Absolute Lymphocytes 0.6 Absolute Monocytes 0.8 Absolute Eosinophils 0.2 Absolute Basophils 0.0 Carbonic Acid 0.92 L HCO3/H2CO3 Ratio 21:1 ABG pH 7.43 ABG pCO2 30.7 L ABG pO2 117.4 H ABG HCO3 19.7 L ABG O2 Saturation 98.4 H ABG Base Excess -3.7 FiO2 30% Sodium 144.6 Potassium 4.8 Chloride 112 H Carbon Dioxide 21 L Anion Gap 12 BUN 5 L Creatinine 0.59 Est GFR ( Amer) > 60 Est GFR (Non-Af Amer) > 60 Glucose 110 Calcium 8.5 Magnesium 1.8 01/21/18 05:00 WBC RBC Hgb Hct MCV MCH MCHC RDW Plt Count Seg Neutrophils % Lymphocytes % Monocytes % Eosinophils % Basophils % Absolute Neutrophils Absolute Lymphocytes Absolute Monocytes Absolute Eosinophils Absolute Basophils Carbonic Acid 1.04 L HCO3/H2CO3 Ratio 20:1 ABG pH 7.40 ABG pCO2 34.7 L ABG pO2 130.1 H ABG HCO3 20.9 ABG O2 Saturation 98.6 H ABG Base Excess -3.3 FiO2 30% Sodium Potassium Chloride Carbon Dioxide Anion Gap BUN Creatinine Est GFR ( Amer) Est GFR (Non-Af Amer) Glucose Calcium Magnesium 01/19/18 11:35 Tracheal Aspirate Gram Stain - Final 01/19/18 11:35 Tracheal Aspirate Sputum Culture - Final Group B Beta Streptococcus Normal Ilene 01/19/18 11:35 Nichole Catheter Urine Culture - Final Escherichia Coli 01/18/18 01/18/18 01/19/18 03:50 17:00 03:52 Creatine Kinase 7741 H 6703 H 4632 H NT-Pro-B Natriuret Pep 01/19/18 01/20/18 03:52 03:59 Creatine Kinase 999 H NT-Pro-B Natriuret Pep 2850 H Impressions: Head CT 01/18/18 00:00 IMPRESSION: NORMAL BRAIN CT WITHOUT CONTRAST. EVIDENCE OF ACUTE STROKE: NO. KUB X-Ray 01/18/18 00:00 IMPRESSION: Nonobstructive bowel gas pattern. Nasogastric tube and Nichole catheter in good positioning Chest X-Ray 01/21/18 06:00 IMPRESSION: 1. Right medial lower lobe airspace opacity compatible with pneumonia. 2. Tubes and lines in appropriate position Assessment & Plan - Diagnosis (1) Aspiration pneumonia Qualifiers: Aspiration pneumonia type: due to vomit Laterality: right Lung location: middle lobe of lung Qualified Code(s): J69.0 - Pneumonitis due to inhalation of food and vomit Is this a current diagnosis for this admission?: Yes (2) Alcohol withdrawal with delirium in inpatient treatment Is this a current diagnosis for this admission?: Yes - Plan Summary Plan Summary: 32-year-old female with history of chronic alcohol use admitted for DVT and 1. Acute respiratory failure due to alcohol withdrawal patient is intubated and sedated, weaning trial today if possible will extubate 2. Aspiration pneumonia currently on IV antibiotics 3.delirium tremens discontinue propofol, start the patient on Precedex drip: Use Versed as needed for severe agitation
[2018-01-21] MEDS: MAGNESIUM OXIDE 400 MG TABLET PO SCH (18:14)
[2018-01-21] MEDS: HALOPERIDOL LACTATE INJ 5 MG/1 ML VIAL IM PRN (20:27)
[2018-01-21] MEDS ORDERED: HALOPERIDOL LACTATE INJ 5 MG/1 ML VIAL IM ONE (22:00)
[2018-01-21] MEDS: LORAZEPAM 24 MG/ D5W 240 ML IV PRN (23:05)
[2018-01-22] MEDS: PROPOFOL 100 ML IV PRN ×4 (00:31→20:45)
[2018-01-22] MEDS: VANCOMYCIN HCL 1,000 MG in DEXTROSE 5%-WATER 250 ML IV SCH ×2 (01:47→10:10)
[2018-01-22] MEDS: LORAZEPAM 24 MG/ D5W 240 ML IV PRN ×4 (06:58→20:45)
[2018-01-22] MEDS: IPRATROPIUM/ALBUTEROL 0.5-2.5 MG/3 ML AMPUL NEB SCH ×2 (08:30→20:01)
[2018-01-22] MEDS: MAGNESIUM OXIDE 400 MG TABLET PO SCH ×2 (10:06→17:43)
[2018-01-22] MEDS: POTASSI CL 20 MEQ/D5-1/2NS 1L 1,000 ML IV PRN (10:06)
[2018-01-22] MEDS: PANTOPRAZOLE SODIUM 40 MG VIAL IV SCH (10:07)
[2018-01-22] MEDS: IRON SUCROSE COMPLEX INJ/PF 100 MG/5 ML SDV IV SCH (10:08)
[2018-01-22] MEDS: THIAMINE HCL 100 MG, FOLIC ACID 1 MG in NORMAL SALINE 250 ML IV SCH (10:10)
[2018-01-22] MEDS: POLYETHYLENE GLYCOL 3350 POWDER 17 GM/1 PACKET PO SCH (10:11)
[2018-01-22] MEDS: LEVOFLOXACIN 750 MG/D5W RTU 750 MG/150 ML RTUPB IV SCH (10:11)
[2018-01-22] MEDS: DEXMEDETOMIDINE 400 MCG/NS 100 ML BOT IV PRN ×2 (10:29→20:44)
[2018-01-22 10:40] LABS: VANCOMYCIN,TROUGH 9.9 ug/mL (5.0-20.0)
[2018-01-22] MEDS: VANCOMYCIN HCL 1,250 MG in DEXTROSE 5%-WATER 250 ML IV SCH ×2 (14:27→21:53)
--- NOTE | 2018-01-22 16:45 | PDOC PROGRESS REPORT ---
Subjective Progress Note for:: 01/22/18 Subjective:: Currently intubated and on propofol, Ativan drip as well as Precedex. She failed weaning trial today. She is best on assist control in the although FiO2 of about 25% Reason For Visit: ETOH W/D SEIZURE Physical Exam Vital Signs: Temp Pulse Resp BP Pulse Ox 97.0 F 82 14 99/62 L 96 01/22/18 05:24 01/22/18 08:30 01/22/18 11:12 01/22/18 11:12 01/22/18 12:00 Intake & Output 01/21/18 01/22/18 01/23/18 06:59 06:59 06:59 Intake Total 5612 4039 Output Total 4475 5300 1000 Balance 1137 -1261 -1000 Weight 66.4 kg 65.2 kg General appearance: PRESENT: no acute distress - Intubated and sedated Head exam: PRESENT: atraumatic Neck exam: PRESENT: lymphadenopathy. ABSENT: carotid bruit, JVD, thyromegaly Respiratory exam: PRESENT: other - Mechanical ventilation Cardiovascular exam: PRESENT: RRR. ABSENT: diastolic murmur, rubs, systolic murmur GI/Abdominal exam: PRESENT: normal bowel sounds, soft. ABSENT: distended, guarding, mass, organolmegaly, rebound, tenderness Rectal exam: PRESENT: deferred Neurological exam: PRESENT: other - sedated Results Laboratory Results: 01/21/18 04:02 01/21/18 04:02 01/22/18 03:45 Triglycerides 119 01/18/18 01/18/18 01/19/18 03:50 17:00 03:52 Creatine Kinase 7741 H 6703 H 4632 H NT-Pro-B Natriuret Pep 01/19/18 01/20/18 03:52 03:59 Creatine Kinase 999 H NT-Pro-B Natriuret Pep 2850 H Impressions: Head CT 01/18/18 00:00 IMPRESSION: NORMAL BRAIN CT WITHOUT CONTRAST. EVIDENCE OF ACUTE STROKE: NO. KUB X-Ray 01/18/18 00:00 IMPRESSION: Nonobstructive bowel gas pattern. Nasogastric tube and Nichole catheter in good positioning Chest X-Ray 01/21/18 06:00 IMPRESSION: 1. Right medial lower lobe airspace opacity compatible with pneumonia. 2. Tubes and lines in appropriate position Assessment & Plan - Time Time Spent with patient: 15-24 minutes Medications reviewed and adjusted accordingly: Yes Anticipated discharge: Home - Plan Summary Plan Summary: Acute respiratory failure likely secondary to aspiration pneumonia. Continue with the mechanical ventilation support and wean off respirator as tolerated 2. Aspiration pneumonia secondary to vomiting continue current antibiotics 3. Alcohol withdrawal with delirium as per report. Patient is currently appropriately sedated and unable to really evaluate her neurological status 4. E. coli UTI currently on Levaquin
[2018-01-23] MEDS: LORAZEPAM 24 MG/ D5W 240 ML IV PRN ×2 (02:21→07:04)
[2018-01-23] MEDS: POTASSI CL 20 MEQ/D5-1/2NS 1L 1,000 ML IV PRN ×2 (02:21→16:13)
[2018-01-23] MEDS: PROPOFOL 100 ML IV PRN (03:44)
[2018-01-23 04:13] LABS: ABSOLUTE BASOPHILS # (AUTO) 0.1 10^3/uL (0.0-0.2); ABSOLUTE EOSINOPHILS # (AUTO) 0.3 10^3/uL (0.0-0.6); ABSOLUTE LYMPHOCYTES (AUTO) 0.8 10^3/uL (0.5-4.7); ABSOLUTE MONOCYTES (AUTO) 0.6 10^3/uL (0.1-1.4); ABSOLUTE NEUT (AUTO) 2.3 10^3/uL (1.7-8.2); BASOPHILS % (AUTO) 1.3 % (0-2); EOSINOPHILS % (AUTO) 7.6 % (0-6); HEMATOCRIT 32.7 % (36.0-47.0); HEMOGLOBIN 10.9 g/dL (12.0-15.5); MEAN CORPUSCULAR HEMOGLOBIN 29.4 pg (27.0-33.4); MEAN CORPUSCULAR HGB CONC 33.2 g/dL (32.0-36.0); MEAN CORPUSCULAR VOLUME 89 fl (80-97); MONOCYTES % (AUTO) 14.7 % (3-13); PLATELET COUNT 144 10^3/uL (150-450); RED BLOOD COUNT 3.69 10^6/uL (3.72-5.28); RED CELL DISTRIBUTION WIDTH 17.6 % (11.5-14.0); SEGMENTED NEUTROPHILS % (AUTO) 56.4 % (42-78); TOTAL CELLS COUNTED % (AUTO) 100 %
[2018-01-23 04:31] LABS: ANION GAP 8 (5-19); BLOOD UREA NITROGEN 3 mg/dL (7-20); CALCIUM 9.3 mg/dL (8.4-10.2); CARBON DIOXIDE 24 mmol/L (22-30); CHLORIDE 111 mmol/L (98-107); GLUCOSE 118 mg/dL (75-110); POTASSIUM 4.4 mmol/L (3.6-5.0)
[2018-01-23] MEDS: VANCOMYCIN HCL 1,250 MG in DEXTROSE 5%-WATER 250 ML IV SCH (05:32)
[2018-01-23] MEDS: DEXMEDETOMIDINE 400 MCG/NS 100 ML BOT IV PRN (05:51)
[2018-01-23] MEDS: IPRATROPIUM/ALBUTEROL 0.5-2.5 MG/3 ML AMPUL NEB SCH ×2 (08:23→19:42)
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
[2018-01-23] MEDS: POLYETHYLENE GLYCOL 3350 POWDER 17 GM/1 PACKET PO SCH (09:40)
[2018-01-23] MEDS: LEVOFLOXACIN 750 MG/D5W RTU 750 MG/150 ML RTUPB IV SCH (09:40)
[2018-01-23] MEDS: MAGNESIUM OXIDE 400 MG TABLET PO SCH ×2 (09:40→17:27)
[2018-01-23] MEDS: THIAMINE HCL 100 MG, FOLIC ACID 1 MG in NORMAL SALINE 250 ML IV SCH (09:41)
--- NOTE | 2018-01-23 11:47 | PSYCHOLOGICAL NOTE ---
Psych Note - Psych Note Psych Note: Chart review conducted Patient still intubated at this time. Please contact behavioral health team once patient is extubated
[2018-01-23 12:10] LABS: ARTERIAL BLOOD BASE EXCESS 0.8 mmol/L; ARTERIAL BLOOD FIO2 21%; ARTERIAL BLOOD H2CO3 0.68 mmol/L (1.05-1.35); ARTERIAL BLOOD HCO3 21.2 mmol/L (20-26); ARTERIAL BLOOD O2 SATURATION 98.7 % (94-98); ARTERIAL BLOOD PCO2 22.7 mmHg (35-45); ARTERIAL BLOOD PH 7.59 (7.35-7.45); ARTERIAL BLOOD PO2 109.5 mmHg (80-100); ARTERIAL BLOOD TOTAL CO2 21.9 mmol/L (21-25)
[2018-01-23 16:04] LABS: VANCOMYCIN,TROUGH 17.5 ug/mL (5.0-20.0)
[2018-01-23] MEDS: ACETAMINOPHEN 650 MG SUPP.RECT PR PRN ×2 (16:16→22:53)
[2018-01-23] MEDS ORDERED: IBUPROFEN 400 MG TABLET PO PRN (16:30)
[2018-01-23] MEDS: MIDAZOLAM 2 MG/2 ML INJ IV PRN (17:28)
--- NOTE | 2018-01-23 18:01 | PDOC CONSULTATION ---
Consultation Consult Date: 01/23/18 Attending physician:: OTTO MALAVE Consult reason:: resp failure /pna History of Present Illness Admission Date/PCP: 01/17/18 19:44 History of Present Illness: ELADIO HAM is a 32 year old female He presented to the emergency room on 513 with altered mental status witnessed seizure confusion with the appearance of alcohol intoxication sees increased and her mental status decreased and she subsequently was intubated and taken to the ICU additional history is unknown at this time as she remains highly she currently will respond to commands she has multiple areas of ecchymosis on his upper extremities torso and face the other etiologies which are uncertain at this time Past Medical History Cardiac Medical History: Reports: None Pulmonary Medical History: Reports: None EENT Medical History: Reports: None Neurological Medical History: Reports: None Endocrine Medical History: Reports: None Renal/ Medical History: Reports: None Malignancy Medical History: Reports: None GI Medical History: Reports: None Denies: Cirrhosis, Hepatitis Musculoskeltal Medical History: Reports: None Skin Medical History: Reports: None Psychiatric Medical History: Reports: None, Alcohol Dependency, Depression Hematology: Denies: Sickle Cell Disease Infectious Medical History: Denies: Clostridium Difficile, Hepatitis B, Hepatitis C Past Surgical History Past Surgical History: Reports: Appendectomy Social History Information Source: [facility] Records Lives with: Spouse/Significant other Smoking Status: Current Every Day Smoker Passive smoke exposure as: Both Frequency of Alcohol Use: Heavy Hx Recreational Drug Use: No Drugs: None Hx Prescription Drug Abuse: No - Advance Directive Resuscitation Status: Full Code Family History Family History: Hypertension Parental Family History Reviewed: No Children Family History Reviewed: No Sibling(s) Family History Reviewed.: No Medication/Allergy Home Medications: No Home Medications 01/18/18 Allergies/Adverse Reactions: No Known Allergies Allergy (Verified 07/04/15 11:54) Review of Systems ROS unobtainable: Due to endotracheal tube, Due to mental status Physical Exam Vital Signs: Temp Pulse Resp BP Pulse Ox 98.1 F 90 11 L 109/73 97 01/23/18 05:36 01/23/18 08:23 01/23/18 10:12 01/23/18 10:12 01/23/18 10:12 Intake & Output 01/22/18 01/23/18 01/24/18 06:59 06:59 06:59 Intake Total 4039 4407 100 Output Total 6720 4970 400 Balance -1261 -506 -300 Weight 65.2 kg 65.2 kg General appearance: PRESENT: no acute distress, cooperative, disheveled, well- developed, well-nourished Head exam: PRESENT: normocephalic Eye exam: PRESENT: conjunctiva pale, EOMI. ABSENT: nystagmus, periorbital swelling, scleral icterus Mouth exam: PRESENT: moist, neck supple, tongue midline, other - ET tube in place. ABSENT: dry mucosa Neck exam: ABSENT: carotid bruit, JVD, lymphadenopathy, thyromegaly, tracheal deviation, tracheostomy Respiratory exam: PRESENT: decreased breath sounds, prolonged expiratory phas, rhonchi, unlabored. ABSENT: retraction, stridor, tachypnea Cardiovascular exam: PRESENT: RRR, +S1, +S2 Pulses: PRESENT: normal radial pulses GI/Abdominal exam: PRESENT: hypoactive bowel sounds, soft Gentrourinary exam: PRESENT: indwelling catheter Extremities exam: ABSENT: clubbing, joint swelling, pedal edema Musculoskeletal exam: ABSENT: deformity, dislocation Neurological exam: PRESENT: awake Skin exam: PRESENT: dry, warm Results Laboratory Results: 01/23/18 03:51 01/23/18 03:51 01/23/18 01/23/18 03:51 03:51 WBC 4.0 RBC 3.69 L Hgb 10.9 L Hct 32.7 L MCV 89 MCH 29.4 MCHC 33.2 RDW 17.6 H Plt Count 144 L Seg Neutrophils % 56.4 Lymphocytes % 20.0 Monocytes % 14.7 H Eosinophils % 7.6 H Basophils % 1.3 Absolute Neutrophils 2.3 Absolute Lymphocytes 0.8 Absolute Monocytes 0.6 Absolute Eosinophils 0.3 Absolute Basophils 0.1 Sodium 143.0 Potassium 4.4 Chloride 111 H Carbon Dioxide 24 Anion Gap 8 BUN 3 L Creatinine 0.53 Est GFR ( Amer) > 60 Est GFR (Non-Af Amer) > 60 Glucose 118 H Calcium 9.3 01/18/18 01/18/18 01/19/18 03:50 17:00 03:52 Creatine Kinase 7741 H 6703 H 4632 H NT-Pro-B Natriuret Pep 01/19/18 01/20/18 03:52 03:59 Creatine Kinase 999 H NT-Pro-B Natriuret Pep 2850 H Impressions: Head CT 01/18/18 00:00 IMPRESSION: NORMAL BRAIN CT WITHOUT CONTRAST. EVIDENCE OF ACUTE STROKE: NO. KUB X-Ray 01/18/18 00:00 IMPRESSION: Nonobstructive bowel gas pattern. Nasogastric tube and Nichole catheter in good positioning Chest X-Ray 01/21/18 06:00 IMPRESSION: 1. Right medial lower lobe airspace opacity compatible with pneumonia. 2. Tubes and lines in appropriate position Assessment & Plan - Diagnosis (1) Alcohol withdrawal delirium Is this a current diagnosis for this admission?: Yes Plan: Patient has been without alcohol no alcohol for at least last 6 days she was admitted on and today is no evidence of withdrawal at this time (2) Aspiration pneumonia Qualifiers: Aspiration pneumonia type: due to vomit Laterality: right Lung location: middle lobe of lung Qualified Code(s): J69.0 - Pneumonitis due to inhalation of food and vomit Is this a current diagnosis for this admission?: Yes Plan: Chest x-ray shows right middle lobe infiltrate respiratory rate minute volume FiO2 airway pressures all success is suggested patient will have successful extubation will proceed with extubation as patient is following commands at this time - Time Total Critical Time (Minutes): 55
[2018-01-23] MEDS: HALOPERIDOL LACTATE INJ 5 MG/1 ML VIAL IM PRN (18:05)
[2018-01-23] MEDS: OLANZAPINE INJ/PF 10 MG SDV IM SCH (22:52)
[2018-01-24] MEDS: POTASSI CL 20 MEQ/D5-1/2NS 1L 1,000 ML IV PRN ×2 (02:27→14:37)
[2018-01-24 04:28] LABS: ABSOLUTE BASOPHILS # (AUTO) 0.1 10^3/uL (0.0-0.2); ABSOLUTE EOSINOPHILS # (AUTO) 0.2 10^3/uL (0.0-0.6); ABSOLUTE MONOCYTES (AUTO) 0.9 10^3/uL (0.1-1.4); ABSOLUTE NEUT (AUTO) 2.5 10^3/uL (1.7-8.2); BASOPHILS % (AUTO) 1.2 % (0-2); EOSINOPHILS % (AUTO) 4.2 % (0-6); HEMATOCRIT 36.1 % (36.0-47.0); HEMOGLOBIN 12.1 g/dL (12.0-15.5); LYMPHOCYTES % (AUTO) 21.9 % (13-45); MEAN CORPUSCULAR HEMOGLOBIN 29.3 pg (27.0-33.4); MEAN CORPUSCULAR HGB CONC 33.6 g/dL (32.0-36.0); MEAN CORPUSCULAR VOLUME 87 fl (80-97); MONOCYTES % (AUTO) 19.4 % (3-13); PLATELET COUNT 192 10^3/uL (150-450); RED BLOOD COUNT 4.14 10^6/uL (3.72-5.28); SEGMENTED NEUTROPHILS % (AUTO) 53.3 % (42-78); TOTAL CELLS COUNTED % (AUTO) 100 %; WHITE BLOOD COUNT 4.8 10^3/uL (4.0-10.5)
[2018-01-24 04:37] LABS: ANION GAP 15 (5-19); BLOOD UREA NITROGEN 7 mg/dL (7-20); CALCIUM 9.3 mg/dL (8.4-10.2); CARBON DIOXIDE 23 mmol/L (22-30); CHLORIDE 106 mmol/L (98-107); GLUCOSE 110 mg/dL (75-110); PHOSPHORUS 4.5 mg/dL (2.5-4.5); SODIUM 143.7 mmol/L (137-145)
--- NOTE | 2018-01-24 06:01 | RADIOLOGY REPORT (SQ) ---
EXAM DESCRIPTION: Single view of the chest CLINICAL HISTORY: res failure/pna COMPARISON: None. FINDINGS: Single frontal view of the chest. Interval removal of endotracheal tube and NG tube. The cardiomediastinal silhouette has normal size and contour. Evaluation lung base with minimal residual right infrahilar airspace opacity. Low lung volumes. Leads overlie the chest. No displaced rib fractures identified. Upper abdominal soft tissues are unremarkable. IMPRESSION: 1. Improved aeration of the right lower lobe with mild persistent right infrahilar airspace opacity.
[2018-01-24 06:11] LABS: ARTERIAL BLOOD BASE EXCESS -0.4 mmol/L; ARTERIAL BLOOD H2CO3 1.01 mmol/L (1.05-1.35); ARTERIAL BLOOD O2 SATURATION 97.3 % (94-98); ARTERIAL BLOOD PCO2 33.7 mmHg (35-45); ARTERIAL BLOOD PH 7.45 (7.35-7.45); ARTERIAL BLOOD PO2 90.3 mmHg (80-100)
[2018-01-24 06:12] LABS: ARTERIAL BLOOD FIO2 ROOM AIR
[2018-01-24] MEDS: IPRATROPIUM/ALBUTEROL 0.5-2.5 MG/3 ML AMPUL NEB SCH ×2 (08:07→19:58)
[2018-01-24] MEDS: POLYETHYLENE GLYCOL 3350 POWDER 17 GM/1 PACKET PO SCH (09:27)
[2018-01-24] MEDS: MAGNESIUM OXIDE 400 MG TABLET PO SCH ×2 (09:27→17:19)
[2018-01-24] MEDS: LEVOFLOXACIN 750 MG/D5W RTU 750 MG/150 ML RTUPB IV SCH (10:36)
[2018-01-24] MEDS: THIAMINE HCL 100 MG, FOLIC ACID 1 MG in NORMAL SALINE 250 ML IV SCH (10:37)
[2018-01-24] MEDS: OLANZAPINE INJ/PF 10 MG SDV IM SCH ×2 (10:37→22:34)
--- NOTE | 2018-01-24 12:12 | PDOC PROGRESS REPORT ---
Subjective Progress Note for:: 01/24/18 Subjective:: She was extubated on January 23 and she is stable respiratory moreno however she remains tachycardic and apparently still gets agitated and somewhat confused which would be secondary to ICU psychosis or being on the vent for close a week. She still also has a low-grade temperature. Reason For Visit: ETOH W/D SEIZURE Physical Exam Vital Signs: Temp Pulse Resp BP Pulse Ox 98.1 F 119 H 18 113/74 100 01/23/18 05:36 01/24/18 08:07 01/24/18 11:00 01/24/18 10:42 01/24/18 11:00 Intake & Output 01/23/18 01/24/18 01/25/18 06:59 06:59 06:59 Intake Total 4464 3298 Output Total 4975 4035 650 Balance -506 -737 -650 Weight 65.2 kg 65.5 kg General appearance: PRESENT: no acute distress, well-nourished Head exam: PRESENT: atraumatic Eye exam: PRESENT: PERRLA Ear exam: PRESENT: normal external ear exam Respiratory exam: PRESENT: clear to auscultation jan. ABSENT: rales, rhonchi, wheezes Cardiovascular exam: PRESENT: +S1, +S2, tachycardia Pulses: PRESENT: normal dorsalis pedis pul Vascular exam: PRESENT: normal capillary refill GI/Abdominal exam: PRESENT: normal bowel sounds, soft. ABSENT: distended, guarding, mass, organolmegaly, rebound, tenderness Rectal exam: PRESENT: deferred Neurological exam: PRESENT: oriented to person, oriented to time, CN II-XII grossly intact, other - sleeping but easily arousable Psychiatric exam: PRESENT: appropriate affect Skin exam: PRESENT: dry, intact, warm. ABSENT: cyanosis, rash Results Laboratory Results: 01/24/18 03:58 01/24/18 03:58 01/23/18 01/23/18 01/24/18 11:30 14:55 03:58 WBC 4.8 RBC 4.14 Hgb 12.1 Hct 36.1 MCV 87 MCH 29.3 MCHC 33.6 RDW 17.0 H Plt Count 192 Seg Neutrophils % 53.3 Lymphocytes % 21.9 Monocytes % 19.4 H Eosinophils % 4.2 Basophils % 1.2 Absolute Neutrophils 2.5 Absolute Lymphocytes 1.0 Absolute Monocytes 0.9 Absolute Eosinophils 0.2 Absolute Basophils 0.1 Carbonic Acid 0.68 L HCO3/H2CO3 Ratio 31:1 ABG pH 7.59 H ABG pCO2 22.7 L ABG pO2 109.5 H ABG HCO3 21.2 ABG O2 Saturation 98.7 H ABG Base Excess 0.8 FiO2 21% Sodium Potassium Chloride Carbon Dioxide Anion Gap BUN Creatinine 0.59 Est GFR ( Amer) > 60 Est GFR (Non-Af Amer) > 60 Glucose Calcium Phosphorus Magnesium 01/24/18 01/24/18 03:58 06:00 WBC RBC Hgb Hct MCV MCH MCHC RDW Plt Count Seg Neutrophils % Lymphocytes % Monocytes % Eosinophils % Basophils % Absolute Neutrophils Absolute Lymphocytes Absolute Monocytes Absolute Eosinophils Absolute Basophils Carbonic Acid 1.01 L HCO3/H2CO3 Ratio 22:1 ABG pH 7.45 ABG pCO2 33.7 L ABG pO2 90.3 ABG HCO3 23.0 ABG O2 Saturation 97.3 ABG Base Excess -0.4 FiO2 ROOM AIR Sodium 143.7 Potassium 4.0 Chloride 106 Carbon Dioxide 23 Anion Gap 15 BUN 7 Creatinine 0.67 Est GFR ( Amer) > 60 Est GFR (Non-Af Amer) > 60 Glucose 110 Calcium 9.3 Phosphorus 4.5 Magnesium 2.1 01/18/18 01/18/18 01/19/18 03:50 17:00 03:52 Creatine Kinase 7741 H 6703 H 4632 H NT-Pro-B Natriuret Pep 01/19/18 01/20/18 03:52 03:59 Creatine Kinase 999 H NT-Pro-B Natriuret Pep 2850 H Impressions: Head CT 01/18/18 00:00 IMPRESSION: NORMAL BRAIN CT WITHOUT CONTRAST. EVIDENCE OF ACUTE STROKE: NO. KUB X-Ray 01/18/18 00:00 IMPRESSION: Nonobstructive bowel gas pattern. Nasogastric tube and Nichole catheter in good positioning Chest X-Ray 01/24/18 06:00 IMPRESSION: 1. Improved aeration of the right lower lobe with mild persistent right infrahilar airspace opacity. Assessment & Plan - Time Time Spent with patient: 15-24 minutes Medications reviewed and adjusted accordingly: Yes Anticipated discharge: Home Within: within 72 hours - Inpatient Certification Based on my medical assessment, after consideration of the patient's comorbidities, presenting symptoms, or acuity I expect that the services needed warrant INPATIENT care.: Yes Medical Necessity: Need For Continuous Telemetry Monitoring, Risk of Complication if Not Cared For in Hospital - Plan Summary Plan Summary: 1. Acute respiratory failure likely secondary to aspiration pneumonia. Status post successful extubation 2. Aspiration pneumonia secondary to vomiting continue Levaquin 3. Alcohol withdrawal with delirium as per report. She is still intermittently confused as well as agitated as per report. Will continue with Ativan as needed and patient is currently also under involuntary commitment 4. E. coli UTI currently on Levaquin next 5. Sinus tachycardia we will continue to monitor 6. Confusion may be a sequela of intubation for prolonged. As well as medications and possibly alcohol withdrawal 7. Thrombocytopenia likely secondary to acute illness this has recovered
--- NOTE | 2018-01-24 19:04 | PDOC PROGRESS REPORT ---
Subjective Progress Note for:: 01/24/18 Subjective:: without complaints Reason For Visit: ETOH W/D SEIZURE Physical Exam Vital Signs: Temp Pulse Resp BP Pulse Ox 98.1 F 130 H 19 107/84 82 L 01/23/18 05:36 01/23/18 20:00 01/24/18 06:00 01/24/18 05:43 01/23/18 20:43 Intake & Output 01/23/18 01/24/18 01/25/18 06:59 06:59 06:59 Intake Total 4464 3298 Output Total 4970 4035 Balance -506 -737 Weight 65.2 kg 65.5 kg General appearance: PRESENT: no acute distress, cooperative, disheveled, well- nourished Head exam: PRESENT: atraumatic, normocephalic Eye exam: PRESENT: conjunctiva pale, EOMI, PERRLA. ABSENT: nystagmus, periorbital swelling, scleral icterus Mouth exam: PRESENT: moist, neck supple, tongue midline Neck exam: ABSENT: carotid bruit, JVD, lymphadenopathy, thyromegaly, tracheal deviation, tracheostomy Respiratory exam: PRESENT: decreased breath sounds, prolonged expiratory phas, rhonchi, unlabored. ABSENT: rales, retraction, stridor, tachypnea Cardiovascular exam: PRESENT: RRR, +S1, +S2, tachycardia Pulses: PRESENT: normal radial pulses GI/Abdominal exam: PRESENT: normal bowel sounds, soft Extremities exam: PRESENT: full ROM. ABSENT: calf tenderness, clubbing, joint swelling Musculoskeletal exam: PRESENT: full ROM. ABSENT: deformity, dislocation Neurological exam: PRESENT: alert, awake Psychiatric exam: PRESENT: flat affect Skin exam: PRESENT: dry, warm Results Laboratory Results: 01/24/18 03:58 01/24/18 03:58 01/23/18 01/23/18 01/24/18 11:30 14:55 03:58 WBC 4.8 RBC 4.14 Hgb 12.1 Hct 36.1 MCV 87 MCH 29.3 MCHC 33.6 RDW 17.0 H Plt Count 192 Seg Neutrophils % 53.3 Lymphocytes % 21.9 Monocytes % 19.4 H Eosinophils % 4.2 Basophils % 1.2 Absolute Neutrophils 2.5 Absolute Lymphocytes 1.0 Absolute Monocytes 0.9 Absolute Eosinophils 0.2 Absolute Basophils 0.1 Carbonic Acid 0.68 L HCO3/H2CO3 Ratio 31:1 ABG pH 7.59 H ABG pCO2 22.7 L ABG pO2 109.5 H ABG HCO3 21.2 ABG O2 Saturation 98.7 H ABG Base Excess 0.8 FiO2 21% Sodium Potassium Chloride Carbon Dioxide Anion Gap BUN Creatinine 0.59 Est GFR ( Amer) > 60 Est GFR (Non-Af Amer) > 60 Glucose Calcium Phosphorus Magnesium 01/24/18 01/24/18 03:58 06:00 WBC RBC Hgb Hct MCV MCH MCHC RDW Plt Count Seg Neutrophils % Lymphocytes % Monocytes % Eosinophils % Basophils % Absolute Neutrophils Absolute Lymphocytes Absolute Monocytes Absolute Eosinophils Absolute Basophils Carbonic Acid 1.01 L HCO3/H2CO3 Ratio 22:1 ABG pH 7.45 ABG pCO2 33.7 L ABG pO2 90.3 ABG HCO3 23.0 ABG O2 Saturation 97.3 ABG Base Excess -0.4 FiO2 ROOM AIR Sodium 143.7 Potassium 4.0 Chloride 106 Carbon Dioxide 23 Anion Gap 15 BUN 7 Creatinine 0.67 Est GFR ( Amer) > 60 Est GFR (Non-Af Amer) > 60 Glucose 110 Calcium 9.3 Phosphorus 4.5 Magnesium 2.1 01/18/18 01/18/18 01/19/18 03:50 17:00 03:52 Creatine Kinase 7741 H 6703 H 4632 H NT-Pro-B Natriuret Pep 01/19/18 01/20/18 03:52 03:59 Creatine Kinase 999 H NT-Pro-B Natriuret Pep 2850 H Impressions: Head CT 01/18/18 00:00 IMPRESSION: NORMAL BRAIN CT WITHOUT CONTRAST. EVIDENCE OF ACUTE STROKE: NO. KUB X-Ray 01/18/18 00:00 IMPRESSION: Nonobstructive bowel gas pattern. Nasogastric tube and Nichole catheter in good positioning Chest X-Ray 01/24/18 06:00 IMPRESSION: 1. Improved aeration of the right lower lobe with mild persistent right infrahilar airspace opacity. Assessment & Plan - Diagnosis (1) Alcohol withdrawal delirium Is this a current diagnosis for this admission?: Yes Plan: Patient has been without alcohol no alcohol for at least last 6 days she was admitted on and today is no evidence of withdrawal at this time (2) Aspiration pneumonia Qualifiers: Aspiration pneumonia type: due to vomit Laterality: right Lung location: middle lobe of lung Qualified Code(s): J69.0 - Pneumonitis due to inhalation of food and vomit Is this a current diagnosis for this admission?: Yes Plan: 2h s/p extubation stable;except for persistant tachycardia - Time Total Critical Time (Minutes): 40
[2018-01-25] MEDS: POTASSI CL 20 MEQ/D5-1/2NS 1L 1,000 ML IV PRN ×2 (00:44→11:38)
[2018-01-25 04:16] LABS: ABSOLUTE BASOPHILS # (AUTO) 0.1 10^3/uL (0.0-0.2); ABSOLUTE EOSINOPHILS # (AUTO) 0.2 10^3/uL (0.0-0.6); ABSOLUTE LYMPHOCYTES (AUTO) 1.2 10^3/uL (0.5-4.7); ABSOLUTE NEUT (AUTO) 3.9 10^3/uL (1.7-8.2); BASOPHILS % (AUTO) 1.4 % (0-2); EOSINOPHILS % (AUTO) 2.7 % (0-6); HEMATOCRIT 36.2 % (36.0-47.0); HEMOGLOBIN 12.2 g/dL (12.0-15.5); LYMPHOCYTES % (AUTO) 18.4 % (13-45); MEAN CORPUSCULAR HEMOGLOBIN 29.1 pg (27.0-33.4); MEAN CORPUSCULAR HGB CONC 33.6 g/dL (32.0-36.0); MEAN CORPUSCULAR VOLUME 87 fl (80-97); MONOCYTES % (AUTO) 15.3 % (3-13); PLATELET COUNT 182 10^3/uL (150-450); RED BLOOD COUNT 4.18 10^6/uL (3.72-5.28); RED CELL DISTRIBUTION WIDTH 16.5 % (11.5-14.0); SEGMENTED NEUTROPHILS % (AUTO) 62.2 % (42-78); TOTAL CELLS COUNTED % (AUTO) 100 %; WHITE BLOOD COUNT 6.3 10^3/uL (4.0-10.5)
[2018-01-25 04:19] LABS: ANION GAP 12 (5-19); BLOOD UREA NITROGEN 7 mg/dL (7-20); CALCIUM 9.8 mg/dL (8.4-10.2); CARBON DIOXIDE 24 mmol/L (22-30); CHLORIDE 105 mmol/L (98-107); GLUCOSE 114 mg/dL (75-110); POTASSIUM 4.3 mmol/L (3.6-5.0); SODIUM 141.2 mmol/L (137-145)
[2018-01-25] MEDS: IPRATROPIUM/ALBUTEROL 0.5-2.5 MG/3 ML AMPUL NEB SCH ×2 (08:29→20:29)
[2018-01-25] MEDS: MAGNESIUM OXIDE 400 MG TABLET PO SCH ×2 (11:36→17:56)
[2018-01-25] MEDS: OLANZAPINE INJ/PF 10 MG SDV IM SCH ×2 (11:36→22:36)
[2018-01-25] MEDS: POLYETHYLENE GLYCOL 3350 POWDER 17 GM/1 PACKET PO SCH (11:36)
[2018-01-25] MEDS: LEVOFLOXACIN 750 MG/D5W RTU 750 MG/150 ML RTUPB IV SCH (11:40)
[2018-01-25] MEDS: THIAMINE HCL 100 MG, FOLIC ACID 1 MG in NORMAL SALINE 250 ML IV SCH (11:41)
--- NOTE | 2018-01-25 11:44 | PDOC PROGRESS REPORT ---
Subjective Progress Note for:: 01/25/18 Subjective:: 48 hours status post extubation remains without complaints Reason For Visit: ETOH W/D SEIZURE Physical Exam Vital Signs: Temp Pulse Resp BP Pulse Ox 99.7 F 105 H 18 119/84 97 01/25/18 07:53 01/25/18 08:27 01/25/18 08:27 01/25/18 07:53 01/25/18 08:27 Intake & Output 01/24/18 01/25/18 01/26/18 06:59 06:59 06:59 Intake Total 3298 3718 Output Total 4035 2860 60 Balance -737 858 -60 Weight 65.5 kg 66 kg General appearance: PRESENT: no acute distress, cooperative, well-developed, well-nourished Head exam: PRESENT: normocephalic Eye exam: PRESENT: conjunctiva pale, EOMI, PERRLA. ABSENT: nystagmus, periorbital swelling, scleral icterus Mouth exam: PRESENT: moist, neck supple, tongue midline Neck exam: ABSENT: carotid bruit, JVD, lymphadenopathy, thyromegaly, tracheal deviation, tracheostomy Respiratory exam: PRESENT: decreased breath sounds, prolonged expiratory phas, rhonchi, unlabored. ABSENT: rales, retraction, stridor, tachypnea, wheezes Cardiovascular exam: PRESENT: RRR, +S1, +S2, tachycardia Pulses: PRESENT: normal radial pulses GI/Abdominal exam: PRESENT: normal bowel sounds, soft Extremities exam: PRESENT: full ROM. ABSENT: calf tenderness, clubbing, joint swelling Musculoskeletal exam: PRESENT: full ROM. ABSENT: deformity, dislocation Neurological exam: PRESENT: alert, awake Psychiatric exam: PRESENT: flat affect Skin exam: PRESENT: dry, warm Results Laboratory Results: 01/25/18 03:58 01/25/18 03:58 01/25/18 01/25/18 03:58 03:58 WBC 6.3 RBC 4.18 Hgb 12.2 Hct 36.2 MCV 87 MCH 29.1 MCHC 33.6 RDW 16.5 H Plt Count 182 Seg Neutrophils % 62.2 Lymphocytes % 18.4 Monocytes % 15.3 H Eosinophils % 2.7 Basophils % 1.4 Absolute Neutrophils 3.9 Absolute Lymphocytes 1.2 Absolute Monocytes 1.0 Absolute Eosinophils 0.2 Absolute Basophils 0.1 Sodium 141.2 Potassium 4.3 Chloride 105 Carbon Dioxide 24 Anion Gap 12 BUN 7 Creatinine 0.66 Est GFR ( Amer) > 60 Est GFR (Non-Af Amer) > 60 Glucose 114 H Calcium 9.8 01/19/18 14:32 Blood Blood Culture - Final NO GROWTH IN 5 DAYS 01/19/18 13:25 Blood Blood Culture - Final NO GROWTH IN 5 DAYS 01/18/18 01/18/18 01/19/18 03:50 17:00 03:52 Creatine Kinase 7741 H 6703 H 4632 H NT-Pro-B Natriuret Pep 01/19/18 01/20/18 03:52 03:59 Creatine Kinase 999 H NT-Pro-B Natriuret Pep 2850 H Impressions: Head CT 01/18/18 00:00 IMPRESSION: NORMAL BRAIN CT WITHOUT CONTRAST. EVIDENCE OF ACUTE STROKE: NO. KUB X-Ray 01/18/18 00:00 IMPRESSION: Nonobstructive bowel gas pattern. Nasogastric tube and Nichole catheter in good positioning Chest X-Ray 01/24/18 06:00 IMPRESSION: 1. Improved aeration of the right lower lobe with mild persistent right infrahilar airspace opacity. Assessment & Plan - Diagnosis (1) Alcohol withdrawal delirium Is this a current diagnosis for this admission?: Yes Plan: Patient has been without alcohol no alcohol for at least last 6 days she was admitted on and today is no evidence of withdrawal at this time (2) Aspiration pneumonia Qualifiers: Aspiration pneumonia type: due to vomit Laterality: right Lung location: middle lobe of lung Qualified Code(s): J69.0 - Pneumonitis due to inhalation of food and vomit Is this a current diagnosis for this admission?: Yes Plan: 2h s/p extubation stable;except for persistant tachycardia - Time Total Critical Time (Minutes): 35
[2018-01-25] MEDS: PHENOL/SODIUM PHENOLATE 100 SPRAY/177 ML BOTTLE PO PRN (15:23)
--- NOTE | 2018-01-25 16:26 | XCELERA REPORT ---
[address] [address] Transthoracic Echocardiogram Report Name: ELADIO HAM Age: 32 yrs Gender: Female : 1985 Patient Status: Inpatient Patient Location: ICU^[id number]^A Study Date: 01/25/2018 02:45 PM Procedure: A two-dimensional transthoracic echocardiogram with color flow and Doppler was performed. Study Quality: Good. Reason For Study: TACHYCARDIA History: TACHYCARDIA. Ordering Physician: FRANCK BAILEY Performed By: Sera Young Interpretation Summary The left ventricle is normal in size. There is normal left ventricular wall thickness. LV EF is 65% Left ventricular systolic function is normal. Doppler measurements suggest normal left ventricular diastolic function The left ventricular wall motion is normal. There is no thrombus. The right atrium is normal. The left atrial size is normal. The interatrial septum is intact with no evidence for an atrial septal defect. There is no evidence of mitral valve prolapse. There is no vegetation seen on the mitral valve. There is no mitral valve stenosis. There is no mitral regurgitation noted. There is no aortic valvular vegetation. There is no aortic valve stenosis There is no LVOT obstruction. No aortic regurgitation is present. There is no tricuspid stenosis. No tricuspid regurgitation. Unable to Calculate RVSp due to lack of TR jet. There is no pulmonic valvular stenosis. There is no pulmonic valvular regurgitation. The aortic root is normal size. There is no pericardial effusion. MMode/2D Measurements & Calculations RVDd: 2.7 cm LVIDd: 4.1 cm FS: 31.4 % Ao root diam: IVSd: 0.84 cm LVIDs: 2.8 cm EDV(Teich): 2.5 cm LVPWd: 1.0 cm 73.2 ml Ao root area: ESV(Teich): 4.8 cm2 29.4 ml LA dimension: EF(Teich): 59.8 % 2.4 cm LVOT diam: LVLd ap4: 7.2 cm SV(MOD-sp4): LA A4Cs: 10.7 cm2 1.7 cm EDV(MOD-sp4): 33.0 ml LVOT area: 53.0 ml 2.2 cm2 LVLs ap4: 5.7 cm ESV(MOD-sp4): 20.0 ml EF(MOD-sp4): 62.3 % LA length: 4.1 cm Doppler Measurements & Calculations MV E max justin: MV P1/2t max justin: Ao V2 max: LV V1 max P.5 cm/sec 124.9 cm/sec 124.9 cm/sec 3.6 mmHg MV P1/2t: 47.2 msec Ao max PG: LV V1 max: MVA(P1/2t): 4.7 cm2 6.2 mmHg 95.3 cm/sec MV dec slope: YANETH(V,D): 1.7 cm2 775.4 cm/sec2 MV dec time: 0.14 sec PA V2 max: 71.1 cm/sec PA max P.0 mmHg Left Ventricle The left ventricle is normal in size. There is normal left ventricular wall thickness. LV EF is 65%. Left ventricular systolic function is normal. Doppler measurements suggest normal left ventricular diastolic function. The left ventricular wall motion is normal. There is no thrombus. There is no ventricular septal defect visualized. Right Ventricle The right ventricle is normal in size and function. Atria The right atrium is normal. The left atrial size is normal. The interatrial septum is intact with no evidence for an atrial septal defect. Mitral Valve There is no evidence of mitral valve prolapse. There is no vegetation seen on the mitral valve. There is no mitral valve stenosis. There is no mitral regurgitation noted. Aortic Valve The aortic valve is trileaflet. The aortic valve opens well. There is no aortic valvular vegetation. There is no aortic valve stenosis. There is no LVOT obstruction. No aortic regurgitation is present. Tricuspid Valve There is no tricuspid stenosis. No tricuspid regurgitation. Unable to Calculate RVSp due to lack of TR jet. Pulmonic Valve There is no pulmonic valvular stenosis. There is no pulmonic valvular regurgitation. Great Vessels The aortic root is normal size. Effusions There is no pericardial effusion. : FRANCK BAILEY > rTini Ott
--- NOTE | 2018-01-25 17:11 | PDOC PROGRESS REPORT ---
Subjective Progress Note for:: 01/25/18 Subjective:: She was extubated on January 23 and she is stable respiratory moreno however she remains tachycardic. She is more appropriate today Reason For Visit: ETOH W/D SEIZURE Physical Exam Vital Signs: Temp Pulse Resp BP Pulse Ox 100.0 F 115 H 19 103/62 98 01/25/18 16:00 01/25/18 16:00 01/25/18 16:00 01/25/18 16:00 01/25/18 16:00 Intake & Output 01/24/18 01/25/18 01/26/18 06:59 06:59 06:59 Intake Total 3298 3718 Output Total 4035 2860 1625 Balance -737 858 -1625 Weight 65.5 kg 66 kg General appearance: PRESENT: no acute distress, well-nourished Head exam: PRESENT: atraumatic, normocephalic Eye exam: PRESENT: conjunctiva pink, PERRLA. ABSENT: scleral icterus Ear exam: PRESENT: normal external ear exam Mouth exam: PRESENT: moist Neck exam: ABSENT: carotid bruit, JVD, lymphadenopathy, thyromegaly Respiratory exam: PRESENT: clear to auscultation jan. ABSENT: rales, rhonchi, wheezes Cardiovascular exam: PRESENT: RRR, tachycardia. ABSENT: diastolic murmur, rubs , systolic murmur Pulses: PRESENT: normal dorsalis pedis pul Vascular exam: PRESENT: normal capillary refill GI/Abdominal exam: PRESENT: normal bowel sounds, soft. ABSENT: distended, guarding, mass, organolmegaly, rebound, tenderness Rectal exam: PRESENT: deferred Extremities exam: PRESENT: full ROM. ABSENT: calf tenderness, clubbing, pedal edema Neurological exam: PRESENT: alert, awake, oriented to person, oriented to place , oriented to time, oriented to situation, CN II-XII grossly intact. ABSENT: motor sensory deficit Psychiatric exam: PRESENT: appropriate affect, suicidal ideation Skin exam: PRESENT: dry, intact, warm. ABSENT: cyanosis, rash Results Laboratory Results: 01/25/18 03:58 01/25/18 03:58 01/25/18 01/25/18 01/25/18 03:58 03:58 03:58 WBC 6.3 RBC 4.18 Hgb 12.2 Hct 36.2 MCV 87 MCH 29.1 MCHC 33.6 RDW 16.5 H Plt Count 182 Seg Neutrophils % 62.2 Lymphocytes % 18.4 Monocytes % 15.3 H Eosinophils % 2.7 Basophils % 1.4 Absolute Neutrophils 3.9 Absolute Lymphocytes 1.2 Absolute Monocytes 1.0 Absolute Eosinophils 0.2 Absolute Basophils 0.1 Sodium 141.2 Potassium 4.3 Chloride 105 Carbon Dioxide 24 Anion Gap 12 BUN 7 Creatinine 0.66 Est GFR ( Amer) > 60 Est GFR (Non-Af Amer) > 60 Glucose 114 H Calcium 9.8 TSH 0.29 L 01/19/18 14:32 Blood Blood Culture - Final NO GROWTH IN 5 DAYS 01/19/18 13:25 Blood Blood Culture - Final NO GROWTH IN 5 DAYS 01/18/18 01/18/18 01/19/18 03:50 17:00 03:52 Creatine Kinase 7741 H 6703 H 4632 H NT-Pro-B Natriuret Pep 01/19/18 01/20/18 03:52 03:59 Creatine Kinase 999 H NT-Pro-B Natriuret Pep 2850 H Impressions: Head CT 01/18/18 00:00 IMPRESSION: NORMAL BRAIN CT WITHOUT CONTRAST. EVIDENCE OF ACUTE STROKE: NO. KUB X-Ray 01/18/18 00:00 IMPRESSION: Nonobstructive bowel gas pattern. Nasogastric tube and Nichole catheter in good positioning Chest X-Ray 01/24/18 06:00 IMPRESSION: 1. Improved aeration of the right lower lobe with mild persistent right infrahilar airspace opacity. Assessment & Plan - Time Time Spent with patient: 15-24 minutes Medications reviewed and adjusted accordingly: Yes Within: within 48 hours - Inpatient Certification Based on my medical assessment, after consideration of the patient's comorbidities, presenting symptoms, or acuity I expect that the services needed warrant INPATIENT care.: Yes Medical Necessity: Risk of Complication if Not Cared For in Hospital - Plan Summary Plan Summary: 1. Acute respiratory failure likely secondary to aspiration pneumonia. Status post successful extubation 2. Aspiration pneumonia secondary to vomiting continue Levaquin 3. Alcohol withdrawal with delirium as per report. Confusion clearing 4. E. coli UTI currently on Levaquin next 5. Sinus tachycardia we will check TSH, echo 6. Confusion - ICU psychosis, medications and possibly alcohol withdrawal 7. Thrombocytopenia likely secondary to acute illness this has recovered 8. Will transfer out of ICU
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
--- NOTE | 2018-01-25 21:59 | PSYCHOLOGICAL NOTE ---
Psych Note - Psych Note Psych Note: Reason for evaluation: Alcohol abuse Contact Permissions: None Impression/Plan: Clinician conducted a comprehensive chart review, per documentation patient received services from discharge planning and stated she felt safe at home and is now allowing her to visit. Per documentation patient's hospitalist stated patient has not had any complaints regarding medical needs and has improved but is still "tachycardic". Clinician observed based on discharge planning note, patient is now able to answer assessment questions. Mental health to conduct an additional assessment face to face at a later time. Consulted with Dr. Escalante regarding the management and care of patient.
[2018-01-26 04:22] LABS: ANION GAP 11 (5-19); BLOOD UREA NITROGEN 8 mg/dL (7-20); CALCIUM 9.4 mg/dL (8.4-10.2); CARBON DIOXIDE 27 mmol/L (22-30); CHLORIDE 103 mmol/L (98-107); GLUCOSE 106 mg/dL (75-110); SODIUM 141.1 mmol/L (137-145)
[2018-01-26] MEDS: IPRATROPIUM/ALBUTEROL 0.5-2.5 MG/3 ML AMPUL NEB SCH ×2 (08:56→20:47)
[2018-01-26] MEDS: OLANZAPINE INJ/PF 10 MG SDV IM SCH (10:59)
[2018-01-26] MEDS: POLYETHYLENE GLYCOL 3350 POWDER 17 GM/1 PACKET PO SCH (11:00)
[2018-01-26] MEDS: MAGNESIUM OXIDE 400 MG TABLET PO SCH ×2 (11:02→17:10)
[2018-01-26] MEDS: THIAMINE HCL 100 MG, FOLIC ACID 1 MG in NORMAL SALINE 250 ML IV SCH (11:03)
[2018-01-26] MEDS: LEVOFLOXACIN 750 MG/D5W RTU 750 MG/150 ML RTUPB IV SCH (11:03)
--- NOTE | 2018-01-26 12:15 | PSYCHOLOGICAL NOTE ---
Psych Note - Psych Note Psych Note: Reason for evaluation: Patient had altered mental status alcohol use disorder Contact permissions: Patient's boyfriend Karl Patient is a 32-year-old female. Patient reports that she is a supportive boyfriend whom they have been dating for 6 months. Patient reports that she feels happy that he was sitting by her while she was going through everything in the ICU. Patient reports that she lives with her 2 stepchildren and her 15- year-old son. Patient reports she does not want to drink anymore and is interested in outpatient services. Patient reports that she did intensive outpatient therapy before. Patient reports that she was in the [employer] for 5 years and has the GI bill and plans on going back to school. 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 Patient reports that she wants to work on getting custody of her daughter who lives in [place] with her ex-. Patient reports that her ex- will not sign divorce papers so she is working towards that as well. Patient reports that she is interesting in home schooling her 15-year-old son and that is a goal of hers. Patient reports that they will eventually moved to [place] because her boyfriend wants to get a job out there. Patient reports that her and her boyfriend eventually want to have a child of their own. Patient reports she does not have any thoughts of wanting to hurt harm or kill herself. Patient reports she is wanting mental health to schedule her an appointment. Patient reports she has never been to an inpatient psychiatric hospital before. Patient reports she wants information regarding how custody is and how her prior alcohol use affects getting custody. Medication recommendations made by contracted [facility] psychiatric provider Dr. Thierno MD includes: None Diagnosis: Per patient report 303.90 (F 10.20) alcohol use disorder severe Impression/plan: Recommendation to rescind involuntary commitment due to patient not meeting criteria [place] GS 122C. Patient denies suicidal/homicidal ideation and is not responding to internal stimuli. Clinician observed patient is currently wanting assistance with substance use treatment in an outpatient setting and is not interested in detox services. Clinician observed patient's affect is improved, with bright affect, cooperative, and appropriate. Clinician observed patient demonstrates future oriented thinking and is able to have a logical linear conversation. Clinician provided education about alcohol use disorder. Mental health to schedule appointment with [facility] for alcohol assessment once patient is medically cleared. Clinician provided education regarding resources to assist with finding out information of legal/ custody arrangements. Attending hospitalist in agreement with plan and disposition. Consulted with Dr. Escalante regarding the management and care of patient.
--- NOTE | 2018-01-26 12:27 | PDOC PROGRESS REPORT ---
Subjective Progress Note for:: 01/26/18 Subjective:: She was extubated on January 23 and she is stable respiratory moreno however she remains tachycardic. She is more appropriate today Echocardiogram noted Reason For Visit: ETOH W/D SEIZURE Physical Exam Vital Signs: Temp Pulse Resp BP Pulse Ox 99.0 F 107 H 15 109/74 99 01/26/18 08:00 01/26/18 08:56 01/26/18 10:00 01/26/18 08:00 01/26/18 08:56 Intake & Output 01/25/18 01/26/18 01/27/18 06:59 06:59 06:59 Intake Total 3718 2341 Output Total 2860 9065 1260 Balance 858 -1144 -1260 Weight 66 kg 66.2 kg General appearance: PRESENT: no acute distress, well-developed, well-nourished Head exam: PRESENT: atraumatic, normocephalic Eye exam: PRESENT: conjunctiva pink, EOMI, PERRLA. ABSENT: scleral icterus Mouth exam: PRESENT: tongue midline Neck exam: ABSENT: carotid bruit, JVD, lymphadenopathy, thyromegaly Respiratory exam: PRESENT: clear to auscultation jan. ABSENT: rales, rhonchi, wheezes Cardiovascular exam: PRESENT: +S1, +S2, tachycardia. ABSENT: diastolic murmur, rubs, systolic murmur Pulses: PRESENT: normal radial pulses Vascular exam: PRESENT: normal capillary refill GI/Abdominal exam: PRESENT: normal bowel sounds, soft. ABSENT: distended, guarding, mass, organolmegaly, rebound, tenderness Rectal exam: PRESENT: deferred Extremities exam: PRESENT: full ROM. ABSENT: calf tenderness, clubbing, pedal edema Musculoskeletal exam: PRESENT: ambulatory, other - R post upper extremity with a cordlike sligtly tender swelling Neurological exam: PRESENT: alert, awake, oriented to person, oriented to place , oriented to time, oriented to situation, CN II-XII grossly intact. ABSENT: motor sensory deficit Psychiatric exam: PRESENT: appropriate affect, normal mood. ABSENT: homicidal ideation, suicidal ideation Skin exam: PRESENT: dry, erythema, intact, warm. ABSENT: cyanosis, rash Results Laboratory Results: 01/25/18 03:58 01/26/18 03:37 01/25/18 01/26/18 03:58 03:37 Sodium 141.1 Potassium 4.0 Chloride 103 Carbon Dioxide 27 Anion Gap 11 BUN 8 Creatinine 0.68 Est GFR ( Amer) > 60 Est GFR (Non-Af Amer) > 60 Glucose 106 Calcium 9.4 TSH 0.29 L 01/18/18 01/18/18 01/19/18 03:50 17:00 03:52 Creatine Kinase 7741 H 6703 H 4632 H NT-Pro-B Natriuret Pep 01/19/18 01/20/18 03:52 03:59 Creatine Kinase 999 H NT-Pro-B Natriuret Pep 2850 H Impressions: Head CT 01/18/18 00:00 IMPRESSION: NORMAL BRAIN CT WITHOUT CONTRAST. EVIDENCE OF ACUTE STROKE: NO. KUB X-Ray 01/18/18 00:00 IMPRESSION: Nonobstructive bowel gas pattern. Nasogastric tube and Nichole catheter in good positioning Chest X-Ray 01/24/18 06:00 IMPRESSION: 1. Improved aeration of the right lower lobe with mild persistent right infrahilar airspace opacity. Assessment & Plan - Time Time Spent with patient: 15-24 minutes Medications reviewed and adjusted accordingly: Yes Within: within 72 hours Disposition: 1. Acute respiratory failure likely secondary to aspiration pneumonia. Status post successful extubation. Patient is progressing well 2. Aspiration pneumonia secondary to vomiting continue Levaquin till tomorrow 3. Alcohol withdrawal with delirium . Appears to be close to baseline mental status 4. E. coli UTI on Levaquin 5. Sinus tachycardia we will check FT4, T3 as TSH low 6. Confusion - ICU psychosis, medications and possibly alcohol withdrawal- resolving 7. Thrombocytopenia likely secondary to acute illness this has recovered 8. Awaiting transfer out of ICU
--- NOTE | 2018-01-26 13:40 | PDOC PROGRESS REPORT ---
Subjective Progress Note for:: 01/26/18 Subjective:: Awake and alert Reason For Visit: ETOH W/D SEIZURE Physical Exam Vital Signs: Temp Pulse Resp BP Pulse Ox 99.0 F 107 H 35 H 109/74 100 01/26/18 08:00 01/26/18 08:00 01/26/18 08:00 01/26/18 08:00 01/26/18 08:00 Intake & Output 01/25/18 01/26/18 01/27/18 06:59 06:59 06:59 Intake Total 3718 2341 Output Total 2860 3485 60 Balance 858 -1144 -60 Weight 66 kg 66.2 kg General appearance: PRESENT: no acute distress, cooperative, disheveled Head exam: PRESENT: atraumatic, normocephalic Eye exam: PRESENT: conjunctiva pale, EOMI, PERRLA. ABSENT: nystagmus, periorbital swelling, scleral icterus Mouth exam: PRESENT: moist, neck supple, tongue midline Neck exam: ABSENT: carotid bruit, JVD, lymphadenopathy, thyromegaly, tracheal deviation, tracheostomy Respiratory exam: PRESENT: decreased breath sounds, prolonged expiratory phas, rhonchi, unlabored. ABSENT: rales, retraction, stridor Cardiovascular exam: PRESENT: RRR, +S1, +S2, tachycardia Pulses: PRESENT: normal radial pulses GI/Abdominal exam: PRESENT: normal bowel sounds, soft Extremities exam: PRESENT: full ROM. ABSENT: calf tenderness, clubbing, joint swelling Musculoskeletal exam: PRESENT: full ROM. ABSENT: deformity, dislocation Neurological exam: PRESENT: alert, awake Skin exam: PRESENT: dry, warm Results Laboratory Results: 01/25/18 03:58 01/26/18 03:37 01/25/18 01/26/18 03:58 03:37 Sodium 141.1 Potassium 4.0 Chloride 103 Carbon Dioxide 27 Anion Gap 11 BUN 8 Creatinine 0.68 Est GFR ( Amer) > 60 Est GFR (Non-Af Amer) > 60 Glucose 106 Calcium 9.4 TSH 0.29 L 01/18/18 01/18/18 01/19/18 03:50 17:00 03:52 Creatine Kinase 7741 H 6703 H 4632 H NT-Pro-B Natriuret Pep 01/19/18 01/20/18 03:52 03:59 Creatine Kinase 999 H NT-Pro-B Natriuret Pep 2850 H Impressions: Head CT 01/18/18 00:00 IMPRESSION: NORMAL BRAIN CT WITHOUT CONTRAST. EVIDENCE OF ACUTE STROKE: NO. KUB X-Ray 01/18/18 00:00 IMPRESSION: Nonobstructive bowel gas pattern. Nasogastric tube and Nichole catheter in good positioning Chest X-Ray 01/24/18 06:00 IMPRESSION: 1. Improved aeration of the right lower lobe with mild persistent right infrahilar airspace opacity. Assessment & Plan - Diagnosis (1) Alcohol withdrawal delirium Is this a current diagnosis for this admission?: Yes Plan: Patient has been without alcohol no alcohol for at least last 6 days she was admitted on and today is no evidence of withdrawal at this time (2) Aspiration pneumonia Qualifiers: Aspiration pneumonia type: due to vomit Laterality: right Lung location: middle lobe of lung Qualified Code(s): J69.0 - Pneumonitis due to inhalation of food and vomit Is this a current diagnosis for this admission?: Yes Plan: 2h s/p extubation stable;except for persistant tachycardia - Time Total Critical Time (Minutes): 40
[2018-01-26] MEDS: PHENOL/SODIUM PHENOLATE 100 SPRAY/177 ML BOTTLE PO PRN (16:07)
[2018-01-26] MEDS ORDERED: LEVOFLOXACIN 750 MG TABLET PO ONE (16:15)
[2018-01-26 18:31] LABS: FREE T3 3.46 pg/mL (2.77-5.27); FREE T4 (FREE THYROXINE) 0.95 ng/dL (0.78-2.19)
--- NOTE | 2018-01-26 18:59 | RADIOLOGY REPORT (SQ) ---
EXAM DESCRIPTION: VENOUS UNILATERAL UPPER COMPLETED DATE/TIME: 01/26/2018 6:50 pm REASON FOR STUDY: Right arm pain, edema r/o blood clot COMPARISON: None. TECHNIQUE: Dynamic and static rushing scale and color images acquired of the right arm venous system. S elected spectral images acquired with additional compression and augmentation maneuvers. The contrala teral subclavian vein and internal jugular vein were also imaged. Images stored on PACS. LIMITATIONS: None. FINDINGS: INTERNAL JUGULAR VEIN: Normal phasicity, compression, augmentation. No visualized echogeni c material on rushing scale. No defects on color images. Comparison opposite side normal. SUBCLAVIAN VEIN: Normal compression, augmentation. No visualized echogenic material on rushing scale. No defects on color images. AXILLARY VEIN: Normal compression, augmentation. No visualized echogenic material on rushing scale. No d efects on color images. BRACHIAL VEIN: Normal compression, augmentation. No visualized echogenic material on rushing scale. No d efects on color images. BASILIC VEIN: Normal compression, augmentation. No visualized echogenic material on rushing scale. No de fects on color images. CEPHALIC VEIN: Thrombus identified. OTHER: No other significant finding. CONTRALATERAL SUBCLAVIAN VEIN AND INTERNAL JUGULAR VEIN: Normal phasicity, compression and augmentation. No visualized echogenic material on rushing scale. No de fects on color images. IMPRESSION: SUPERFICIAL THROMBOPHLEBITIS INVOLVING THE CEPHALIC VEIN. NO DVT. TECHNICAL DOCUMENTATION: JOB ID: [id number] [employer]- All Rights Reserved Reading location - IP/workstation name: [email or web address]
[2018-01-26] MEDS ORDERED: LORAZEPAM 1 MG TABLET ONE (20:28)
[2018-01-26] MEDS ORDERED: LORAZEPAM 1 MG TABLET PO ONE (21:00)
[2018-01-26] MEDS ORDERED: OLANZAPINE 5 MG TABLET PO SCH (22:00)
[2018-01-27 08:18] VITALS: BP 111/68
[2018-01-27] MEDS: IPRATROPIUM/ALBUTEROL 0.5-2.5 MG/3 ML AMPUL NEB SCH (08:33)
[2018-01-27] MEDS ORDERED: THIAMINE HCL 100 MG TABLET PO SCH (10:00)
[2018-01-27] MEDS ORDERED: LEVOFLOXACIN 750 MG TABLET PO SCH (10:00)
--- NOTE | 2018-01-27 10:34 | PDOC DISCHARGE SUMMARY ---
General - Admit/Disc Date/PCP Admission Date/Primary Care Provider: 01/17/18 19:44 Discharge Date: 01/27/18 - Discharge Diagnosis (1) Alcohol abuse, daily use Is this a current diagnosis for this admission?: Yes (2) Alcohol withdrawal delirium Is this a current diagnosis for this admission?: Yes (3) Aspiration pneumonia Is this a current diagnosis for this admission?: Yes (4) Tachycardia Is this a current diagnosis for this admission?: Yes (5) UTI (urinary tract infection) Is this a current diagnosis for this admission?: Yes (6) Rhabdomyolysis Is this a current diagnosis for this admission?: Yes (7) Superficial thrombophlebitis Is this a current diagnosis for this admission?: Yes (8) Acute respiratory failure Is this a current diagnosis for this admission?: Yes - Additional Information Resuscitation Status: Full Code Discharge Activity: Activity As Tolerated Home Medications: Thiamine HCl [Thiamine 100 mg Tablet] 100 mg PO DAILY tablet 01/27/18 History of Present Illness Patient complains of: This patient was admitted with history of alcohol dependence and no altered mental status with him at least one seizure prior to admission. She was found to be intoxicated agitated and manic with flight of ideas and widespread bruising History of Present Illness: ELADIO HAM is a 32 year old female This patient was admitted with history of alcohol dependence and no altered mental status with him at least one seizure prior to admission. She was found to be intoxicated agitated and manic with flight of ideas and widespread bruising. She was intubated during the course of the hospital stay due to impending respiratory failure. She was also found to have a aspiration pneumonia. Hospital Course Hospital Course: This patient was admitted with history of alcohol dependence and no altered mental status with him at least one seizure prior to admission. She was found to be intoxicated agitated and manic with flight of ideas and widespread bruising. She was intubated during the course of the hospital stay due to impending respiratory failure. She was also found to have a aspiration pneumonia. Patient spent a prolonged and extended time on the ventilator ultimately extubated on January 23. She remained tachycardic and an echocardiogram was done which revealed revealed no significant findings. She also had thyroid function test done which were at the lower limit of normal and she has been asked to follow-up with her primary care physician for repeat thyroid function test. Because of the multiple bruises and contusions the patient presented with admission DSS was contacted and DSS was contacted again prior to discharge and she was cleared for discharge with no intervention advised. Patient was also seen by psychiatry. She had been placed on involuntary commitment initially during admission and after further review IVC was listed by psychiatry. Has been advised on need to abstain from alcohol use. Continue to improve and stabilize as since she was extubated. She was initially confused but the confusion as cleared and she appears to be back to her baseline mental status so she likely has some ICU and iatrogenic psychosis. He was seen by Dr. Lake who helped to manage her pulmonary illness. At this time with no further interventions been planned and with patient be relatively hemodynamically stable and have been cleared for discharge by psychiatry she is being discharged home for outpatient follow-up. An appointment with port services was also secured for her. Physical Exam Vital Signs: Temp Pulse Resp BP Pulse Ox 97.7 F 116 H 14 111/68 99 01/27/18 08:00 01/27/18 08:00 01/27/18 08:00 01/27/18 08:00 01/27/18 08:00 Intake & Output 01/26/18 01/27/18 01/28/18 06:59 06:59 06:59 Intake Total 2341 850 Output Total 3485 1260 Balance -1144 -410 Weight 66.2 kg 64.6 kg General appearance: PRESENT: no acute distress, well-developed, well-nourished Head exam: PRESENT: atraumatic, normocephalic Eye exam: PRESENT: conjunctiva pink, EOMI, PERRLA. ABSENT: scleral icterus Ear exam: PRESENT: normal external ear exam Mouth exam: PRESENT: moist, tongue midline Neck exam: ABSENT: carotid bruit, JVD, lymphadenopathy, thyromegaly Respiratory exam: PRESENT: clear to auscultation jan. ABSENT: rales, rhonchi, wheezes Cardiovascular exam: PRESENT: +S1, +S2, tachycardia. ABSENT: diastolic murmur, rubs, systolic murmur Pulses: PRESENT: normal dorsalis pedis pul Vascular exam: PRESENT: normal capillary refill GI/Abdominal exam: PRESENT: normal bowel sounds, soft. ABSENT: distended, guarding, mass, organolmegaly, rebound, tenderness Rectal exam: PRESENT: deferred Extremities exam: PRESENT: full ROM, other - R UE localized swelling and tender area improved. ABSENT: calf tenderness, clubbing, pedal edema Neurological exam: PRESENT: alert, awake, oriented to person, oriented to place , oriented to time, oriented to situation, CN II-XII grossly intact. ABSENT: motor sensory deficit Psychiatric exam: PRESENT: appropriate affect, homicidal ideation, normal mood, suicidal ideation Skin exam: PRESENT: dry, intact, warm. ABSENT: cyanosis, rash Results Laboratory Results: 01/25/18 03:58 01/26/18 03:37 01/26/18 17:40 Free T4 0.95 Free T3 pg/mL 3.46 01/18/18 01/18/18 01/19/18 03:50 17:00 03:52 Creatine Kinase 7741 H 6703 H 4632 H NT-Pro-B Natriuret Pep 01/19/18 01/20/18 03:52 03:59 Creatine Kinase 999 H NT-Pro-B Natriuret Pep 2850 H Impressions: Head CT 01/18/18 00:00 IMPRESSION: NORMAL BRAIN CT WITHOUT CONTRAST. EVIDENCE OF ACUTE STROKE: NO. KUB X-Ray 01/18/18 00:00 IMPRESSION: Nonobstructive bowel gas pattern. Nasogastric tube and Nichole catheter in good positioning Chest X-Ray 01/24/18 06:00 IMPRESSION: 1. Improved aeration of the right lower lobe with mild persistent right infrahilar airspace opacity. Venous Doppler Study 01/26/18 12:09 IMPRESSION: SUPERFICIAL THROMBOPHLEBITIS INVOLVING THE CEPHALIC VEIN. NO DVT. Qualifiers - * PATIENT BEING DISCHARGED WITH ANY OF THE FOLLOWING DIAGNOSIS: No Plan Time Spent: Greater than 30 Minutes
--- NOTE | 2018-01-27 13:20 | PDOC PROGRESS REPORT ---
Subjective Progress Note for:: 01/27/18 Subjective:: Awake and alert Reason For Visit: ETOH W/D SEIZURE Physical Exam Vital Signs: Temp Pulse Resp BP Pulse Ox 97.7 F 116 H 14 111/68 99 01/27/18 08:00 01/27/18 08:00 01/27/18 08:00 01/27/18 08:00 01/27/18 08:00 Intake & Output 01/26/18 01/27/18 01/28/18 06:59 06:59 06:59 Intake Total 2341 850 Output Total 3485 1260 Balance -1144 -410 Weight 66.2 kg 64.6 kg General appearance: PRESENT: no acute distress, cooperative, disheveled Head exam: PRESENT: atraumatic, normocephalic Eye exam: PRESENT: conjunctiva pale, EOMI, PERRLA. ABSENT: nystagmus, periorbital swelling, scleral icterus Mouth exam: PRESENT: dry mucosa, neck supple, tongue midline Neck exam: ABSENT: carotid bruit, JVD, lymphadenopathy, thyromegaly, tracheal deviation, tracheostomy Respiratory exam: PRESENT: decreased breath sounds, prolonged expiratory phas, rhonchi, unlabored. ABSENT: rales, retraction, stridor Cardiovascular exam: PRESENT: RRR, +S1, +S2 GI/Abdominal exam: PRESENT: normal bowel sounds, soft Extremities exam: ABSENT: calf tenderness, clubbing, joint swelling Musculoskeletal exam: ABSENT: deformity, dislocation Neurological exam: PRESENT: alert, awake Psychiatric exam: PRESENT: normal mood Skin exam: PRESENT: dry, warm Results Laboratory Results: 01/25/18 03:58 01/26/18 03:37 01/26/18 17:40 Free T4 0.95 Free T3 pg/mL 3.46 01/18/18 01/18/18 01/19/18 03:50 17:00 03:52 Creatine Kinase 7741 H 6703 H 4632 H NT-Pro-B Natriuret Pep 01/19/18 01/20/18 03:52 03:59 Creatine Kinase 999 H NT-Pro-B Natriuret Pep 2850 H Impressions: Head CT 01/18/18 00:00 IMPRESSION: NORMAL BRAIN CT WITHOUT CONTRAST. EVIDENCE OF ACUTE STROKE: NO. KUB X-Ray 01/18/18 00:00 IMPRESSION: Nonobstructive bowel gas pattern. Nasogastric tube and Nichole catheter in good positioning Chest X-Ray 01/24/18 06:00 IMPRESSION: 1. Improved aeration of the right lower lobe with mild persistent right infrahilar airspace opacity. Venous Doppler Study 01/26/18 12:09 IMPRESSION: SUPERFICIAL THROMBOPHLEBITIS INVOLVING THE CEPHALIC VEIN. NO DVT. Assessment & Plan - Diagnosis (1) Alcohol withdrawal delirium Is this a current diagnosis for this admission?: Yes Plan: Patient has been without alcohol no alcohol for at least last 6 days she was admitted on and today is no evidence of withdrawal at this time (2) Aspiration pneumonia Qualifiers: Aspiration pneumonia type: due to vomit Laterality: right Lung location: middle lobe of lung Qualified Code(s): J69.0 - Pneumonitis due to inhalation of food and vomit Is this a current diagnosis for this admission?: Yes Plan: 2h s/p extubation stable;except for persistant tachycardia - Time Total Critical Time (Minutes): 40
== END 2018-01-27 11:00 | disposition home or self-care (01) | DRG 896 ==
LOC: ER 14:11 → OBSVTOIN 19:44 → EH 19:44 → ICU 22:43
PROVIDERS: ADMIT Internal Medicine; ATTEND Internal Medicine
PROC: 5A1955Z Respiratory Ventilation, Greater than 96 Consecutive Hours (ICD-10-PCS; principal; 2018-01-18)
PROC: 0BH17EZ Insertion of Endotracheal Airway into Trachea, Via Natural or Artificial Opening (ICD-10-PCS; 2018-01-18)
DX: F10.231 Alcohol dependence with withdrawal delirium (principal); J69.0 Pneumonitis due to inhalation of food and vomit; J96.00 Acute respiratory failure, unspecified whether with hypoxia or hypercapnia; M62.82 Rhabdomyolysis; N39.0 Urinary tract infection, site not specified; I82.611 Acute embolism and thrombosis of superficial veins of right upper extremity; D69.59 Other secondary thrombocytopenia; F10.221 Alcohol dependence with intoxication delirium; F32.9 Major depressive disorder, single episode, unspecified; F17.200 Nicotine dependence, unspecified, uncomplicated; D50.9 Iron deficiency anemia, unspecified; R50.9 Fever, unspecified; R79.89 Other specified abnormal findings of blood chemistry; F28 Other psychotic disorder not due to a substance or known physiological condition; B96.20 Unspecified Escherichia coli [E. coli] as the cause of diseases classified elsewhere; T14.8XXA Other injury of unspecified body region, initial encounter; S00.83XA Contusion of other part of head, initial encounter; X58.XXXA Exposure to other specified factors, initial encounter; B95.1 Streptococcus, group B, as the cause of diseases classified elsewhere; R56.9 Unspecified convulsions; R00.0 Tachycardia, unspecified; Z90.49 Acquired absence of other specified parts of digestive tract; Z91.81 History of falling; Z78.1 Physical restraint status
CPT/HCPCS: 31500; 36415; 70450; 71045; 74018; 80048; 80053; 80202; 80307; 81001; 82550; 82565; 82803; 83540; 83690; 83735; 83880; 84100; 84439; 84443; 84478; 84481; 84703; 85025; 85027; 85610; 87040; 87070; 87077; 87086; 87088; 87186; 87205; 93005; 93010; 93306; 93971; 94002; 94003; 94640; 94799; 96361; 96374; 99285; J0330; J1205; J1630; J1644; J1756; J1956; J2060; J2250; J2270; J2704; J3010; J3370; J3411; J3475; J3480; J3490; J7030; J7050; J7060; J7120; J7620; J8499; S0164